=== PATIENT | male | born 1950 | race Caucasian/White ===

== ENCOUNTER → 2017-01-16 | Outpatient (CLI) | payer BC ==
[~2017-01-16] MED LIST: ALPR0.254 PO; ALPR0.5T6 PO; ATOR10TA60 PO; INSU100I13 SQ; LEVO125T5 PO; LEVO25TA4 PO; LISI-338 PO; LISI10TA2 PO; METF500T4 PO; MULT-658 PO; fish oil
--- NOTE | 2017-01-16 16:53 | RAD ---
Left lower extremity venous ultrasound, 01/16/2017 : History: Left leg swelling Duplex evaluation including grayscale, color flow and spectral Doppler analysis was performed. The femoral and popliteal veins show no filling defects to suggest DVT. The visualized calf veins are unremarkable. IMPRESSION: There is no sonographic evidence of deep vein thrombosis in the left lower extremity
== END | disposition home or self-care (01) ==
LOC: RAD 16:04
PROVIDERS: ATTEND Nurse Practitioner Family
DX: M79.89 Other specified soft tissue disorders (principal)
CPT/HCPCS: 93971

== ENCOUNTER → 2017-03-30 | Outpatient (CLI) | payer BC ==
--- NOTE | 2017-03-30 15:44 | RAD ---
EXAM: Chest 2 views. HISTORY: Cough. COMPARISON: None. FINDINGS: Frontal and lateral views of the chest are obtained. There is a mild airspace opacity in the left base. There is minimal atelectasis in the right base. There is no pneumothorax or pleural effusion. The heart is not enlarged. IMPRESSION: 1. Mild left greater than right basilar opacities may represent only atelectasis. Correlate for evidence of infection to exclude mild infiltrates.
== END | disposition home or self-care (01) ==
LOC: DXRADRC 15:33
PROVIDERS: ATTEND Nurse Practitioner Family
DX: R05 Cough (principal)
CPT/HCPCS: 71020

== ENCOUNTER → 2017-04-17 | Outpatient (CLI) | payer BC ==
--- NOTE | 2017-04-17 15:21 | RAD ---
Indication history of pneumonia. Frontal and lateral views of the chest were obtained. Comparison is made to an examination 03/30/2017. The heart and pulmonary vessels appear within normal limits. Somewhat tortuous thoracic aorta is noted. An acute parenchymal infiltrate is not seen on today's exam. Significant pleural fluid is not present and there is no pneumothorax. IMPRESSION: No acute finding
== END | disposition home or self-care (01) ==
LOC: DXRADRC 14:49
PROVIDERS: ATTEND Nurse Practitioner Family
DX: J18.9 Pneumonia, unspecified organism (principal); Q25.46 Tortuous aortic arch
CPT/HCPCS: 71020

== ENCOUNTER → 2018-09-03 | Outpatient (CLI) | payer MEDICARE, OTHER ==
[~2018-09-03] MED LIST changes: +METF500T16 PO; -METF500T4 PO
--- NOTE | 2018-09-03 09:10 | RAD ---
CHEST PA LATERAL Clinical indications: COUGH X 2 WEEKS COMPARISON: April 17, 2017. March 30, 2017. Findings: No acute lung infiltrate or pleural effusion or pulmonary edema or lung mass or pneumothorax is seen. The heart size, pulmonary vasculature, mediastinum and both ana are unremarkable. The osseous structures appear intact. Impression: No acute radiographic abnormality is seen. Electronically signed by: Duran Avila MD (09/03/2018 9:08 AM) [facility]
== END | disposition home or self-care (01) ==
LOC: PMG 07:49
PROVIDERS: ATTEND Physician Assistant Medical
DX: R05 Cough (principal)
CPT/HCPCS: 71046

== ENCOUNTER 2018-12-24 22:01 | Emergency (ER) | payer MEDICARE ==
[~2018-12-24] VITALS: Ht 177.8 cm; Wt 99.8 kg
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
[2018-12-24] MEDS ORDERED: CONTRAST GIVEN MC PRN (22:45)
[2018-12-24 22:50] LABS: BASO # 0.1 x10^3/uL (0.0-0.2); BASO % 1 % (0-3); EOS # 0.4 x10^3/uL (0.0-0.7); EOS % 4 % (0-3); HEMOGLOBIN 14.1 g/dL (13.0-17.5); LYMPH # 1.6 x10^3/uL (1.0-4.8); LYMPH % 17 % (24-48); MEAN CORPUSCULAR HEMOGLOBIN 29 pg (25-35); MEAN CORPUSCULAR HGB CONC 34 g/dL (31-37); MEAN CORPUSCULAR VOLUME 85 fL (79-100); MONO # 0.6 x10^3/uL (0.0-1.1); MONO % 6 % (0-9); NEUT # 6.8 x10^3uL (1.8-7.7); NEUT % 72 % (31-73); PLATELET COUNT 301 x10^3/uL (140-400); RED BLOOD COUNT 4.95 x10^6/uL (4.30-5.70); RED CELL DISTRIBUTION WIDTH 13.7 % (11.5-14.5); WHITE BLOOD COUNT 9.4 x10^3/uL (4.0-11.0)
[2018-12-24] MEDS ORDERED: IOHEXOL 300 MG/ML 75 ML VIAL. IV ONE (23:00)
[2018-12-24] MEDS ORDERED: IV RINGERS SOLUTION,LACTATED 1,000 ML IV ONE (23:00)
[2018-12-24] MEDS ORDERED: IOHEXOL 240 MG/ML 50ML VIAL. PO ONE (23:00)
[2018-12-24 23:15] LABS: ALBUMIN 3.4 g/dL (3.4-5.0); CALCIUM 9.4 mg/dL (8.5-10.1); CREATININE 0.9 mg/dL (0.7-1.3); DIRECT BILIRUBIN 0.1 mg/dL (0.0-0.2); GFR 84.4; MAGNESIUM 1.7 mg/dL (1.8-2.4); POTASSIUM 3.9 mmol/L (3.5-5.1); TOTAL BILIRUBIN 0.4 mg/dL (0.2-1.0); TOTAL PROTEIN 7.3 g/dL (6.4-8.2)
[2018-12-24] MEDS ORDERED: METF10007 PO (23:27)
[2018-12-24] MEDS ORDERED: INSU100I32 SQ (23:27)
[2018-12-24] MEDS ORDERED: LEVO175T5 PO (23:27)
[2018-12-24] MEDS ORDERED: LISI-334 PO (23:27)
[2018-12-24] MEDS ORDERED: ATOR40TA59 PO (23:27)
[2018-12-24] MEDS ORDERED: HYDR-2145 PO (23:27)
--- NOTE | 2018-12-24 23:35 | RAD ---
AP chest. HISTORY: Dyspnea AP view was taken of the chest. There is a left lung nodule unchanged from old studies. Heart is upper normal in size. The aorta is tortuous. There is a focal infiltrate or possible nodule on the right, follow-up film would be recommended. There is no effusion. There is not evidence of heart failure. IMPRESSION: 1. Left lung nodule unchanged from old studies. 2. Possible small infiltrate or nodule right lung, follow-up recommended. 3. No other infiltrates. Electronically signed by: Jabari Russell MD (12/24/2018 11:32 PM) [facility]
[2018-12-25] MEDS ORDERED: MAGNESIUM SULFATE 2GM 50 ML IV ONE (00:30)
[2018-12-25 00:32] LABS: BARBITURATES NEG (NEG); BENZODIAZEPINES NEG (NEG); BILIRUBIN,URINE NEG (NEG); CANNABINOIDS POS (NEG); CLARITY,URINE CLEAR; COCAINE NEG (NEG); COLOR,URINE YELLOW; GLUCOSE,URINE >=1000 mg/dL (NEG); METHADONE NEG (NEG); OPIATES NEG (NEG); PHENCYCLIDINE NEG (NEG)
[2018-12-25 00:33] LABS: BACTERIA,URINE 0 /HPF (0-FEW); NITRITE,URINE NEG (NEG); RBC,URINE >40 /HPF (0-2); SQUAMOUS EPITHELIAL CELL,UR OCC /LPF; UROBILINOGEN,URINE 0.2 mg/dL (0.2 mg/dL); WBC,URINE OCC /HPF (0-4)
--- NOTE | 2018-12-25 00:33 | RAD ---
CT abdomen and pelvis with contrast. HISTORY: Right groin mass. Testicular pain, history of throat cancer in 2014 CT scan the abdomen and pelvis was done using 75 mL Omnipaque 300. There is a focal infiltrate in the medial right lower lobe, pneumonia is possible. Follow-up would be recommended to exclude an infiltrative mass. There is linear scarring or atelectasis in the left lung base. A liver lesion is not identified. There are gallstones in the gallbladder. Spleen and adrenal glands are normal. There is an accessory spleen. Pancreas is unremarkable. There is no mass or hydronephrosis in the kidneys. There is moderate stool in the colon. The cecum is in a large inguinal hernia extending to the scrotum on the right. Appendix is not abnormal. There is no bowel obstruction. Small bowel pattern is normal. Bladder is distended. There is a bladder diverticulum on the left side of the bladder. IMPRESSION: 1. Large right inguinal hernia containing the cecum. 2. Bladder diverticulum on the left with distended bladder. 3. Mild dilatation the renal collecting systems probably related to the distended bladder. 4. No bowel obstruction. 5. Cholelithiasis. 6. Infiltrate versus infiltrative mass in the medial right lower lobe follow-up CT recommended. Electronically signed by: Jabari Russell MD (12/25/2018 12:30 AM) [facility]
[2018-12-25 00:38] LABS: AMPHETAMINE/METHAMPHETAMINE NEG (NEG)
[2018-12-25 01:30] VITALS: BP 149/94
[2018-12-25] MEDS ORDERED: MORPHINE SULFATE 10 MG/ML SYRINGE. SQ ONE (01:30)
[2018-12-26 03:07] LABS: HEMOGLOBIN A1C 11.1 % (4.8-5.6)
== END 2018-12-25 01:41 | disposition short-term general hospital (02) ==
LOC: ER 22:01
DX: K40.90 Unilateral inguinal hernia, without obstruction or gangrene, not specified as recurrent (principal); E83.42 Hypomagnesemia; E87.1 Hypo-osmolality and hyponatremia; E11.9 Type 2 diabetes mellitus without complications; I10 Essential (primary) hypertension; N32.89 Other specified disorders of bladder; N13.30 Unspecified hydronephrosis; K80.20 Calculus of gallbladder without cholecystitis without obstruction; Z79.899 Other long term (current) drug therapy
CPT/HCPCS: 36415; 71045; 74177; 80048; 80076; 80307; 81001; 82150; 83036; 83690; 83735; 83880; 84443; 85025; 85610; 85730; 93005; 96365; 96372; 99285; J2270; J3475; J7120; Q9966; Q9967

== ENCOUNTER 2019-09-14 21:17 | Emergency (ER) | payer MEDICARE ==
[~2019-09-14] VITALS: Ht 177.8 cm; Wt 99.0 kg
[~2019-09-14 21:17] MED LIST changes: +ATOR40TA59 PO; +HYDR-2145 PO; +INSU100I32 SQ; +LEVO175T5 PO; +LISI-334 PO; +METF10007 PO
[2019-09-14] MEDS ORDERED: IV NORMAL SALINE 1,000ML 1,000 ML IV ONE ×2 (22:00→23:30)
[2019-09-14 22:29] LABS: BASO # 0.1 x10^3/uL (0.0-0.2); BASO % 1 % (0-3); EOS % 0 % (0-3); HEMATOCRIT 45.1 % (39.0-53.0); HEMOGLOBIN 14.8 g/dL (13.0-17.5); LYMPH # 0.3 x10^3/uL (1.0-4.8); LYMPH % 2 % (24-48); MEAN CORPUSCULAR HEMOGLOBIN 28 pg (25-35); MEAN CORPUSCULAR HGB CONC 33 g/dL (31-37); MEAN CORPUSCULAR VOLUME 84 fL (79-100); MONO # 0.4 x10^3/uL (0.0-1.1); MONO % 3 % (0-9); NEUT % 95 % (31-73); PLATELET COUNT 319 x10^3/uL (140-400); RED BLOOD COUNT 5.35 x10^6/uL (4.30-5.70); RED CELL DISTRIBUTION WIDTH 13.8 % (11.5-14.5); WHITE BLOOD COUNT 14.8 x10^3/uL (4.0-11.0)
--- NOTE | 2019-09-14 22:29 | PHYS DOC ---
Past History Past Medical History: Cancer, Diabetes, Hypertension, Hypothyroid Past Surgical History: Appendectomy, Other Additional Past Surgical Histo: LEFT FOOT, HERNIA Alcohol Use: Sober Drug Use: Marijuana Adult General Chief Complaint Chief Complaint: NAUSEA/VOMITING/DIARRHEA HPI HPI Patient is a 69 year old male who presents with nausea, vomiting and diarrhea. Symptoms started with 1 day of constipation the day after eating precooked salmon from [employer] that was 4 days old at the time. He ate the salmon again last night for dinner. Patient awoke this morning to vomiting and diarrhea. He has since vomited 15 times and also had diarrhea 15 times today. Patient has not been able to drink or eat today. Patient denies cough or sick contacts. Nobody else ate the salmon with him. Review of Systems Review of Systems Constitutional: Denies fever or chills Eyes: Denies redness or eye pain HENT: Denies nasal congestion or sore throat Respiratory: Denies cough or shortness of breath Cardiovascular: Denies chest pain or palpitations GI: No tenderness to palpation. Has had constipation, diarrhea and vomiting all within last 2 days. : Denies dysuria or hematuria Musculoskeletal: Denies back pain or joint pain Integument: Denies rash or skin lesions Neurologic: Denies headache, focal weakness or sensory changes Complete systems were reviewed and found to be within normal limits, except as documented in this note. Current Medications Current Medications Current Medications Medications (Trade) Dose Ordered Sig/Pito Start Time Stop Time Status Last Admin Dose Admin Famotidine (Pepcid Vial) 20 mg 1X ONCE 09/14/19 22:00 09/14/19 22:01 UNV Ketorolac Tromethamine (Toradol 30mg Vial) 15 mg 1X ONCE 09/14/19 22:00 09/14/19 22:01 UNV Ondansetron HCl (Zofran) 4 mg 1X ONCE 09/14/19 22:00 09/14/19 22:01 UNV Sodium Chloride 1,000 ml @ 1,000 mls/hr 1X ONCE 09/14/19 22:00 09/14/19 22:59 UNV Allergies Allergies Allergies Coded Allergies Type Severity Reaction Last Updated Verified No Known Drug Allergies 12/24/18 No Physical Exam Physical Exam Constitutional: Well developed, dehydrated, mildly distressed, non-toxic appearance HENT: Normocephalic, atraumatic Eyes: PERRL, EOMI, conjunctiva normal, no discharge Neck: Normal range of motion, no tenderness, supple Cardiovascular: Heart rate normal, regular rhythm Lungs & Thorax: Bilateral breath sounds clear to auscultation, no wheezing Abdomen: Soft, no tenderness on exam. Bowel sounds present in 4 quadrants. Skin: Warm, dry, no erythema, no rash Back: No tenderness, no CVA tenderness Extremities: No tenderness, ROM intact, no edema Neurologic: Alert and oriented X 3, normal motor function, normal sensory function, no focal deficits noted Psychologic: Affect normal, judgment normal Current Patient Data Vital Signs Vital Signs Date Time Temp Pulse Resp B/P (MAP) Pulse Ox O2 Delivery O2 Flow Rate FiO2 09/14/19 21:20 97.4 101 20 105/45 (65) 95 Room Air EKG EKG [] Radiology/Procedures Radiology/Procedures PROCEDURE: CT ABDOMEN PELVIS WO CONTRAST CT abdomen pelvis without contrast. HISTORY: Hematuria, nausea and vomiting CT scan the abdomen pelvis was done without contrast. Comparison is made with a study from December 2018. There is mild atelectasis in the lung bases although minimal infiltrates are possible. There is no effusion. There is a small hiatus hernia with fluid in the esophagus from reflux. There are gallstones in the gallbladder. A liver lesion is not identified. There is an accessory spleen. Spleen and adrenal glands are otherwise unremarkable. A pancreatic lesion is not identified. There is no mass or hydronephrosis or calculus in the kidneys. A ureteral calculus is not identified. There is no bowel obstruction. Appendix is normal. There is a moderate sized left bladder diverticulum. The bladder is mildly distended. There is fluid in the small bowel and colon which can be seen with gastroenteritis. There is no obstructive pattern. IMPRESSION: 1. Normal appendix. 2. Left bladder diverticulum without change from the old study. 3. No renal or ureteral calculus noted. 4. Cholelithiasis. 5. Fluid in the bowel possible ileus or gastroenteritis, no obstructive pattern. 6. Mild basilar atelectasis or infiltrates. PQRS Compliance Statement: One or more of the following individualized dose reduction techniques were utilized for this examination: 1. Automated exposure control 2. Adjustment of the mA and/or kV according to patient size 3. Use of iterative reconstruction technique Electronically signed by: Jabari Russell MD (09/15/2019 2:13 AM) [id number] Course & Med Decision Making Course & Med Decision Making Pertinent Labs reviewed. (See chart for details) Patient presents today with 2 day history of GI distress, starting with 1 day of constipation and 1 day of persistent diarrhea and vomiting. Patient has not been able to eat or drink for 1 day. Vomiting has become painful. Patient did not exhibit abdominal pain or peritoneal signs. On exam he did not exhibit signs or symptoms concerning for cardiovascular causes for his symptoms. HPI was positive for questionable salmon that was consumed 2 days in a row at the start and middle of the course of his presenting symptoms. Patient does not exhibit fever nor signs of systemic infection. Nausea and pain was addressed with Ketorolac, zofran and pepcid. Dehydration was addressed with IV fluid hydration. Labs were ordered which showed hyperglycemia and negative acetones. Patient received 2 L of fluid rehydration and was then able to produce urine. Dragon Disclaimer Dragon Disclaimer This electronic medical record was generated, in whole or in part, using a voice recognition dictation system. Departure Departure: Impression: Primary Impression: Nausea vomiting and diarrhea Additional Impressions: Hematuria Acute renal insufficiency Hyperglycemia Disposition: 01 HOME, SELF-CARE Condition: STABLE Referrals: DEON ECKERT MD (PCP) Patient Instructions: Clear Liquid Diet, Qnid-by-Gvlc, Dehydration, Adult, Qvtf-[id number], Diarrhea, Gxzp-hc-[id number], Diet for Diarrhea, Adult, Hematuria, Adult, Hyperglycemia, Fmre-[id number], Nausea and Vomiting, [id number]-[id number] Additional Instructions: Please follow closely with your urologist for further evaluation and treatment. Scripts Hyoscyamine Sulfate (LEVSIN-SL) 0.125 Mg Tab.subl 0.125 MG SL Q4-6HRS PRN for PAIN, #14 TAB Prov: PIEDAD PISANO DO 09/15/19 Famotidine (PEPCID) 20 Mg Tablet 1 TAB PO BID for Gastritis, #14 TAB Prov: PIEDAD PISANO DO 09/15/19 Ondansetron (ONDANSETRON ODT) 4 Mg Tab.rapdis 1 TAB PO PRN Q6-8HRS PRN for NAUSEA, #16 TAB Prov: PIEDAD PISANO DO 09/15/19 Problem Qualifiers Additional Impressions: Hematuria Hematuria type: unspecified type Qualified Codes: R31.9 - Hematuria, unspecified PIEDAD PISANO DO Sep 14, 2019 22:29
[2019-09-14] MEDS ORDERED: FAMOTIDINE 20 MG/2 ML VIAL IVP ONE (22:30)
[2019-09-14] MEDS ORDERED: ONDANSETRON PF 4 MG/2 ML VIAL. IVP ONE (22:30)
[2019-09-14] MEDS ORDERED: KETOROLAC 30 MG/ML VIAL. IVP ONE (22:30)
[2019-09-14 22:36] LABS: CALCIUM 9.3 mg/dL (8.5-10.1); CREATININE 2.2 mg/dL (0.7-1.3); POTASSIUM 4.3 mmol/L (3.5-5.1)
[2019-09-14 22:44] LABS: ALBUMIN 3.8 g/dL (3.4-5.0); TOTAL BILIRUBIN 0.6 mg/dL (0.2-1.0); TOTAL PROTEIN 7.8 g/dL (6.4-8.2)
[2019-09-14 22:48] LABS: % BANDS 2 % (0-9); % LYMPHS 4 % (24-48); % MONOS 1 % (0-10); % SEGS 93 % (35-66)
[2019-09-14 22:49] LABS: PLT ESTIMATE ADEQUATE (ADEQUATE)
[2019-09-14] MEDS ORDERED: INSULIN REGULAR 100 UNIT/ML 3ML VIAL. SQ ONE (23:30)
[2019-09-15 01:11] LABS: BILIRUBIN,URINE NEG (NEG); CLARITY,URINE CLEAR; COLOR,URINE YELLOW; GLUCOSE,URINE >=1000 mg/dL (NEG)
[2019-09-15 01:12] LABS: BACTERIA,URINE 0 /HPF (0-FEW); NITRITE,URINE NEG (NEG); RBC,URINE >40 /HPF (0-2); SQUAMOUS EPITHELIAL CELL,UR OCC /LPF; UROBILINOGEN,URINE 0.2 mg/dL (0.2 mg/dL)
[2019-09-15] MEDS ORDERED: FAMO-63 PO (02:11)
[2019-09-15] MEDS ORDERED: ONDA4TAB12 PO (02:11)
[2019-09-15] MEDS ORDERED: HYOS0.1265 SL (02:11)
--- NOTE | 2019-09-15 02:16 | RAD ---
CT abdomen pelvis without contrast. HISTORY: Hematuria, nausea and vomiting CT scan the abdomen pelvis was done without contrast. Comparison is made with a study from December 2018. There is mild atelectasis in the lung bases although minimal infiltrates are possible. There is no effusion. There is a small hiatus hernia with fluid in the esophagus from reflux. There are gallstones in the gallbladder. A liver lesion is not identified. There is an accessory spleen. Spleen and adrenal glands are otherwise unremarkable. A pancreatic lesion is not identified. There is no mass or hydronephrosis or calculus in the kidneys. A ureteral calculus is not identified. There is no bowel obstruction. Appendix is normal. There is a moderate sized left bladder diverticulum. The bladder is mildly distended. There is fluid in the small bowel and colon which can be seen with gastroenteritis. There is no obstructive pattern. IMPRESSION: 1. Normal appendix. 2. Left bladder diverticulum without change from the old study. 3. No renal or ureteral calculus noted. 4. Cholelithiasis. 5. Fluid in the bowel possible ileus or gastroenteritis, no obstructive pattern. 6. Mild basilar atelectasis or infiltrates. PQRS Compliance Statement: One or more of the following individualized dose reduction techniques were utilized for this examination: 1. Automated exposure control 2. Adjustment of the mA and/or kV according to patient size 3. Use of iterative reconstruction technique Electronically signed by: Jabari Russell MD (09/15/2019 2:13 AM) [id number]
[2019-09-15 02:21] VITALS: BP 105/68
== END 2019-09-15 02:27 | disposition home or self-care (01) ==
LOC: ER 21:17
DX: N28.9 Disorder of kidney and ureter, unspecified (principal); R11.2 Nausea with vomiting, unspecified; R19.7 Diarrhea, unspecified; R31.9 Hematuria, unspecified; E11.65 Type 2 diabetes mellitus with hyperglycemia; I10 Essential (primary) hypertension; E03.9 Hypothyroidism, unspecified
CPT/HCPCS: 36415; 74176; 80053; 81001; 82010; 83690; 85007; 85025; 96361; 96372; 96374; 96375; 99284; J1815; J1885; J2405; J3490; J7030

== ENCOUNTER 2021-07-23 11:37 | Inpatient (IN) | payer MEDICARE, OTHER ==
[~2021-07-23] VITALS: Ht 180.3 cm; Wt 102.4 kg
[~2021-07-23 11:37] MED LIST changes: +FAMO-63 PO; +HYOS0.1265 SL; -LISI-334 PO; -LISI-338 PO; +LISI10TA16 PO; -LISI10TA2 PO; +LISI20TA18 PO; +LISI5TAB15 PO; +ONDA4TAB12 PO
[2021-07-23] MEDS ORDERED: IV NORMAL SALINE 1,000ML 1,000 ML IV ONE (12:45)
[2021-07-23] MEDS ORDERED: ONDANSETRON PF 4 MG/2 ML VIAL. IVP ONE (12:45)
[2021-07-23] MEDS ORDERED: IOHEXOL 300 MG/ML 75 ML VIAL. IV ONE (13:00)
[2021-07-23] MEDS ORDERED: CONTRAST GIVEN. MC PRN (13:00)
[2021-07-23 13:22] LABS: BASO % 0 % (0-3); EOS # 0.1 x10^3/uL (0.0-0.7); EOS % 1 % (0-3); HEMATOCRIT 35.3 % (39.0-53.0); HEMOGLOBIN 11.5 g/dL (13.0-17.5); LYMPH # 0.6 x10^3/uL (1.0-4.8); LYMPH % 8 % (24-48); MEAN CORPUSCULAR HEMOGLOBIN 26 pg (25-35); MEAN CORPUSCULAR HGB CONC 32 g/dL (31-37); MEAN CORPUSCULAR VOLUME 79 fL (79-100); MONO # 0.5 x10^3/uL (0.0-1.1); MONO % 7 % (0-9); NEUT # 6.5 x10^3uL (1.8-7.7); NEUT % 84 % (31-73); PLATELET COUNT 351 x10^3/uL (140-400); RED BLOOD COUNT 4.47 x10^6/uL (4.30-5.70); RED CELL DISTRIBUTION WIDTH 15.3 % (11.5-14.5); WHITE BLOOD COUNT 7.7 x10^3/uL (4.0-11.0)
[2021-07-23 13:37] LABS: INFLUENZA A PATIENT NEGATIVE (NEGATIVE); INFLUENZA B PATIENT NEGATIVE (NEGATIVE)
[2021-07-23 13:37] LABS: CALCIUM 8.5 mg/dL (8.5-10.1); GFR 74.1; POTASSIUM 3.5 mmol/L (3.5-5.1)
[2021-07-23 13:43] LABS: ALBUMIN 2.5 g/dL (3.4-5.0); ALBUMIN/GLOBULIN RATIO 0.5 (1.0-1.7); TOTAL BILIRUBIN 0.8 mg/dL (0.2-1.0); TOTAL PROTEIN 7.2 g/dL (6.4-8.2)
--- NOTE | 2021-07-23 13:55 | PHYS DOC ---
Past History Past Medical History: Cancer, Diabetes, Hypertension, Hypothyroid Additional Past Medical Histor: BPH, insomnia (NELLA RUANO APRN) Past Surgical History: Cancer Surgery, Tonsillectomy, Other Additional Past Surgical Histo: hernia repair, L foot and knee surgery (NELLA RUANO APRN) Smoking: Quit Greater Than 1 Year Alcohol Use: Sober Drug Use: Marijuana (NELLA RUANO APRN) General Adult EDM: Chief Complaint: NAUSEA/VOMITING/DIARRHEA HPI: HPI: Patient is a 71-year-old male that presents today with nausea vomiting and diarrhea for the last 4 days. Patient states that 4 days ago his symptoms started mostly with diarrhea which she had multiple stools throughout the day he said in the last 24 hours he has mostly had nausea he says he has not vomited today but does feel the need to at all times. He denies chest pain or shortness of air at this time. Patient states he had similar symptoms 2 years ago and was sent home he states and has felt fine since then. Patient does state that he has had his [employer] vaccines as well. (NELLA RUANO APRN) Review of Systems: Review of Systems: Constitutional: Denies fever or chills Eyes: Denies change in visual acuity HENT: Denies nasal congestion or sore throat Respiratory: Denies cough or shortness of breath Cardiovascular: Denies chest pain or edema GI: Nausea, diarrhea, vomiting : Denies dysuria Musculoskeletal: Denies back pain or joint pain Integument: Denies rash Neurologic: Denies headache, focal weakness or sensory changes Endocrine: Denies polyuria or polydipsia Lymphatic: Denies swollen glands Psychiatric: Denies depression or anxiety (NELLA RUANO JUVENILE OFFICER) Current Medications: Current Meds: Current Medications Medications (Trade) Dose Ordered Sig/Pito Start Time Stop Time Status Last Admin Dose Admin Info (Do NOT chart on this entry -- for MONITORING) 1 each PRN DAILY PRN 07/23/21 13:00 07/25/21 12:59 Iohexol (Omnipaque 300 Mg/ml) 75 ml 1X ONCE 07/23/21 13:00 07/23/21 13:01 DC Ondansetron HCl (Zofran) 4 mg 1X ONCE 07/23/21 12:45 07/23/21 12:58 DC 07/23/21 13:08 4 MG Sodium Chloride 1,000 ml @ 1,000 mls/hr 1X ONCE 07/23/21 12:45 07/23/21 13:44 DC 07/23/21 13:07 1,000 MLS/HR (NELLA RUANO APRN) Allergies: Allergies: Allergies Coded Allergies Type Severity Reaction Last Updated Verified No Known Drug Allergies 12/24/18 No (NELLA RUANO APRN) Physical Exam: PE: Constitutional: Well developed, well nourished, no acute distress, non-toxic appearance. [] HENT: Normocephalic, atraumatic, bilateral external ears normal, oropharynx moist, no oral exudates, nose normal. [] Eyes: PERRLA, EOMI, conjunctiva normal, no discharge. [] Neck: Normal range of motion, no tenderness, supple, no stridor. [] Cardiovascular:Heart rate regular rhythm, no murmur [] Lungs & Thorax: Bilateral breath sounds clear to auscultation [] Abdomen: Bowel sounds are hyperactive, no pain or guarding with palpation. No pulsatile masses noted as well. Skin: Warm, dry, no erythema, no rash. [] Back: No tenderness, no CVA tenderness. [] Extremities: No tenderness, no cyanosis, no clubbing, ROM intact, no edema. Peripheral pulses 2+ Neurologic: Alert and oriented X 3, normal motor function, normal sensory function, no focal deficits noted. [] Psychologic: Affect normal, judgement normal, mood normal. [] (NELLA RUANO APRN) Current Patient Data: Labs: Laboratory Tests Test 07/23/21 12:18 07/23/21 12:40 White Blood Count 7.7 x10^3/uL Red Blood Count 4.47 x10^6/uL Hemoglobin 11.5 g/dL Hematocrit 35.3 % Mean Corpuscular Volume 79 fL Mean Corpuscular Hemoglobin 26 pg Mean Corpuscular Hemoglobin Concent 32 g/dL Red Cell Distribution Width 15.3 % Platelet Count 351 x10^3/uL Neutrophils (%) (Auto) 84 % Lymphocytes (%) (Auto) 8 % Monocytes (%) (Auto) 7 % Eosinophils (%) (Auto) 1 % Basophils (%) (Auto) 0 % Neutrophils # (Auto) 6.5 x10^3uL Lymphocytes # (Auto) 0.6 x10^3/uL Monocytes # (Auto) 0.5 x10^3/uL Eosinophils # (Auto) 0.1 x10^3/uL Basophils # (Auto) 0.0 x10^3/uL Sodium Level 131 mmol/L Potassium Level 3.5 mmol/L Chloride Level 93 mmol/L Carbon Dioxide Level 26 mmol/L Anion Gap 12 Blood Urea Nitrogen 12 mg/dL Creatinine 1.0 mg/dL Estimated GFR (Cockcroft-Gault) 74.1 BUN/Creatinine Ratio 12 Glucose Level 197 mg/dL Calcium Level 8.5 mg/dL Total Bilirubin 0.8 mg/dL Aspartate Amino Transf (AST/SGOT) 38 U/L Alanine Aminotransferase (ALT/SGPT) 51 U/L Alkaline Phosphatase 117 U/L Total Protein 7.2 g/dL Albumin 2.5 g/dL Albumin/Globulin Ratio 0.5 Lipase 90 U/L Influenza Type A (Rapid) Negative Influenza Type B (Rapid) Negative SARS-CoV-2 Antigen (Rapid) Positive Current Medications Medications (Trade) Dose Ordered Sig/Pito Route PRN Reason Start Time Stop Time Status Last Admin Dose Admin Sodium Chloride 1,000 ml @ 1,000 mls/hr 1X ONCE IV 07/23/21 12:45 07/23/21 13:44 DC 07/23/21 13:07 Ondansetron HCl (Zofran) 4 mg 1X ONCE IVP 07/23/21 12:45 07/23/21 12:58 DC 07/23/21 13:08 Iohexol (Omnipaque 300 Mg/ml) 75 ml 1X ONCE IV 07/23/21 13:00 07/23/21 13:01 DC Info (Do NOT chart on this entry -- for MONITORING) 1 each PRN DAILY PRN MC SEE COMMENTS 07/23/21 13:00 07/25/21 12:59 Dexamethasone Sodium Phosphate (Decadron) 10 mg 1X ONCE PO 07/23/21 14:00 07/23/21 14:02 DC Ceftriaxone Sodium 1 gm/ Sodium Chloride 50 ml @ 100 mls/hr 1X ONCE IV 07/23/21 14:15 07/23/21 14:44 DC Azithromycin 500 mg/Sodium Chloride 250 ml @ 250 mls/hr 1X ONCE IV 07/23/21 14:15 07/23/21 15:14 Laboratory Tests Test 07/23/21 12:18 White Blood Count 7.7 x10^3/uL (4.0-11.0) Red Blood Count 4.47 x10^6/uL (4.30-5.70) Hemoglobin 11.5 g/dL (13.0-17.5) L Hematocrit 35.3 % (39.0-53.0) L Mean Corpuscular Volume 79 fL (79-100) Mean Corpuscular Hemoglobin 26 pg (25-35) Mean Corpuscular Hemoglobin Concent 32 g/dL (31-37) Red Cell Distribution Width 15.3 % (11.5-14.5) H Platelet Count 351 x10^3/uL (140-400) Neutrophils (%) (Auto) 84 % (31-73) H Lymphocytes (%) (Auto) 8 % (24-48) L Monocytes (%) (Auto) 7 % (0-9) Eosinophils (%) (Auto) 1 % (0-3) Basophils (%) (Auto) 0 % (0-3) Neutrophils # (Auto) 6.5 x10^3uL (1.8-7.7) Lymphocytes # (Auto) 0.6 x10^3/uL (1.0-4.8) L Monocytes # (Auto) 0.5 x10^3/uL (0.0-1.1) Eosinophils # (Auto) 0.1 x10^3/uL (0.0-0.7) Basophils # (Auto) 0.0 x10^3/uL (0.0-0.2) Sodium Level 131 mmol/L (136-145) L Potassium Level 3.5 mmol/L (3.5-5.1) Chloride Level 93 mmol/L (98-107) L Carbon Dioxide Level 26 mmol/L (21-32) Anion Gap 12 (6-14) Blood Urea Nitrogen 12 mg/dL (8-26) Creatinine 1.0 mg/dL (0.7-1.3) Estimated GFR (Cockcroft-Gault) 74.1 BUN/Creatinine Ratio 12 (6-20) Glucose Level 197 mg/dL (70-99) H Calcium Level 8.5 mg/dL (8.5-10.1) Total Bilirubin Pending Aspartate Amino Transferase (AST) Pending Alanine Aminotransferase (ALT) Pending Alkaline Phosphatase Pending Total Protein Pending Albumin Pending Albumin/Globulin Ratio Pending Lipase Pending Vital Signs: Vital Signs Date Time Temp Pulse Resp B/P (MAP) Pulse Ox O2 Delivery O2 Flow Rate FiO2 07/23/21 19:00 98.2 89 18 157/89 (111) 95 Nasal Cannula 2.0 07/23/21 17:50 71 20 123/66 (85) 91 2.0 07/23/21 16:50 78 18 120/71 (87) 94 2.0 07/23/21 15:50 79 18 136/79 (98) 95 2.0 07/23/21 14:50 77 20 130/70 (90) 95 2.0 07/23/21 13:50 78 18 144/72 (96) 89 07/23/21 12:50 70 18 138/75 (96) 92 07/23/21 12:23 98.4 79 22 143/85 (104) 92 Room Air Vital Signs Date Time Temp Pulse Resp B/P (MAP) Pulse Ox O2 Delivery O2 Flow Rate FiO2 07/23/21 12:23 98.4 79 22 143/85 (104) 92 Room Air Vital Signs Date Time Temp Pulse Resp B/P (MAP) Pulse Ox O2 Delivery O2 Flow Rate FiO2 07/23/21 12:23 98.4 79 22 143/85 (104) 92 Room Air (NELLA RUANO APRN) EKG: EKG: [] (NELLA RUANO JUVENILE OFFICER) Radiology/Procedures: Radiology/Procedures: REASON: chest/abd pain PROCEDURE: CHEST AP ONLY XR CHEST 1V History: Reason: chest/abd pain / Spl. Instructions: / History: Comparison: December 24, 2018. Findings: Moderate multifocal pulmonary opacities bilaterally. No pleural effusion. No pneumothorax. Normal heart size. Impression: 1. Moderate multifocal pulmonary opacities, concerning for pneumonia including viral pneumonia. Electronically signed by: Luis Enrique Powell DO (07/23/2021 1:56 PM) [id number] [] (NELLA RUANO APRN) Heart Score: C/O Chest Pain: N/A Risk Factors: Risk Factors: DM, Current or recent (<one month) smoker, HTN, HLP, family history of CAD, obesity. Risk Scores: Score 0 - 3: 2.5% MACE over next 6 weeks - Discharge Home Score 4 - 6: 20.3% MACE over next 6 weeks - Admit for Clinical Observation Score 7 - 10: 72.7% MACE over next 6 weeks - Early Invasive Strategies (NELLA RUANO APRN) Course & Med Decision Making: Course & Med Decision Making Pertinent Labs and Imaging studies reviewed. (See chart for details) 1415 reassessment of patient shows patient's oxygen saturation when he falls asleep to 86% on room air placed on 2 L nasal cannula to maintain sats greater than 92%. Did contact Dr. Weston for admission due to COVID-19 and for the need of oxygen therapy to maintain sats greater than 92%. Patient was given Decadron and IV antibiotics for atypical pneumonia in the right middle lobe. Patient is agreeable to admission. (NELLA RUANO APRN) Course & Med Decision Making I was the Attending physician on the above date of service of this patient. This patient was evaluated, examined, treated, and dispositioned from the emergency department by the mid-level practitioner. I reviewed case with OUTCOME ANALYST and agreed to plan of care and need for admission Electronically signed, Santos Severino DO (SANTOS SEVERINO DO) Manoj Disclaimer: Manoj Disclaimer: This electronic medical record was generated, in whole or in part, using a voice recognition dictation system. (NELLA RUANO APRN) Departure Departure: Impression: Primary Impression: COVID-19 Additional Impressions: Hypoxia Nausea & vomiting Qualified Codes: R11.2 - Nausea with vomiting, unspecified Atypical pneumonia Disposition: ADMITTED INPATIENT Admitting Physician: Karl Weston (NELLA RUANO APRN) Condition: GUARDED Referrals: DEON ECKERT MD (PCP) NELLA RUANO APRN Jul 23, 2021 13:55 SANTOS SEVERINO DO Jul 25, 2021 06:27
--- NOTE | 2021-07-23 13:58 | RAD ---
XR CHEST 1V History: Reason: chest/abd pain / Spl. Instructions: / History: Comparison: December 24, 2018. Findings: Moderate multifocal pulmonary opacities bilaterally. No pleural effusion. No pneumothorax. Normal hea rt size. Impression: 1. Moderate multifocal pulmonary opacities, concerning for pneumonia including viral pneumonia. Electronically signed by: Luis Enrique Powell DO (07/23/2021 1:56 PM) [id number]
[2021-07-23] MEDS ORDERED: DEXAMETHASONE SOD PHOS 10 MG/ML VIAL. PO ONE (14:00)
[2021-07-23] MEDS ORDERED: AZITHROMYCIN 500 MG in IV NORMAL SALINE 250ML 250 ML IV ONE (14:15)
[2021-07-23] MEDS ORDERED: ACETAMINOPHEN 325 MG TABLET PO PRN (15:00)
[2021-07-23] MEDS ORDERED: IV NORMAL SALINE 250ML 250 ML ONE (15:23)
[2021-07-23] MEDS ORDERED: cefTRIAXone SODIUM 1 GM VIAL ONE (15:24)
[2021-07-23] MEDS ORDERED: AZITHROMYCIN 500 MG VIAL. IV ONE (15:24)
[2021-07-23] MEDS ORDERED: IV NORMAL SALINE 50ML 50 ML ONE (15:24)
[2021-07-23 17:06] LABS: BACTERIA,URINE 0 /HPF (0-FEW); BILIRUBIN,URINE NEG (NEG); CLARITY,URINE CLEAR; COLOR,URINE YELLOW; GLUCOSE,URINE 250 mg/dL (NEG); NITRITE,URINE NEG (NEG); RBC,URINE 0 /HPF (0-2); SQUAMOUS EPITHELIAL CELL,UR OCC /LPF; WBC,URINE OCC /HPF (0-4)
[2021-07-23 19:00] VITALS: BP 157/89
[2021-07-23] MEDS ORDERED: OMEG10005 PO (19:54)
[2021-07-23] MEDS ORDERED: ALPR0.5T6 PO (19:54)
[2021-07-23] MEDS ORDERED: HYDR12.58 PO (19:54)
[2021-07-23] MEDS ORDERED: INSU100I32 SQ (19:54)
[2021-07-23] MEDS ORDERED: METF500T16 PO (19:54)
[2021-07-23] MEDS ORDERED: [UNRECOGNIZED DRUG - CODE] PO (19:54)
[2021-07-23] MEDS ORDERED: ZOLP5TAB5 PO (19:54)
[2021-07-23] MEDS ORDERED: TAMS0.4C97 PO (19:54)
[2021-07-23] MEDS ORDERED: ZOLPIDEM 5 MG TABLET. PO PRN (20:00)
[2021-07-23] MEDS ORDERED: ATORVASTATIN CALCIUM 20 MG TABLET PO SCH (21:00)
[2021-07-23] MEDS ORDERED: INSULIN GLARGINE SYRINGE. SQ SCH (21:00)
--- NOTE | 2021-07-23 23:42 | NUR ---
PT ADMITTED TO [facility] ACCOMPANIED BY ER STAFF. PT AMBULATED INDEPENDENTLY FROM [facility] TO BED. VS OBTAINED. PT AOX4. MEDICATION LIST COPIED INTO CHART AND RECONCILED.
[2021-07-24] VITALS: BP 143/56
[2021-07-24 05:00] VITALS: BP 149/96
[2021-07-24] MEDS ORDERED: TAMSULOSIN 0.4 MG CAP.ER.24H. PO SCH (09:00)
[2021-07-24] MEDS ORDERED: hydroCHLOROthiazide 25 MG TABLET. PO SCH (09:00)
[2021-07-24] MEDS ORDERED: OMEGA-3 FATTY ACIDS/FISH OIL 1,000 MG CAPSULE. PO SCH (09:00)
[2021-07-24] MEDS ORDERED: ALPRAZolam 0.5 MG TABLET PO SCH (09:00)
[2021-07-24] MEDS ORDERED: NON FORMULARY ITEM (Hydrochlorothiazide (Hydrochlorothiazide Tablet) 12.5 MG) PO SCH (09:00)
--- NOTE | 2021-07-24 10:23 | HP ---
DATE OF SERVICE: 07/24/2021 ADMIT DATE: 07/23/2021 ATTENDING PHYSICIAN: Dr. Hendrix. CHIEF COMPLAINT: Diarrhea and dehydration last 4 days. HISTORY OF PRESENT ILLNESS: The patient is 71. He has been fully vaccinated against the COVID virus. He has had GI symptoms, nausea, vomiting, diarrhea for 4 days. He is very weak, tired. He also tested positive incidentally for the COVID pneumonia. I do not think he has active pulmonary issues, his saturations were reasonable. He did have a chest x-ray which showed some chronic changes at the base. He was admitted, nevertheless, with a diagnosis of COVID pneumonia as well as GI symptoms with dehydration. PAST MEDICAL HISTORY: Significant for bladder cancer, diabetes, hypothyroidism, benign prostatic hypertrophy, tonsillectomy and foot surgery. ALLERGIES: He has no recorded drug allergies. CURRENT MEDICATIONS: At home include the following: He was on alprazolam, Lipitor, famotidine, hydrochlorothiazide, hydroxyzine, insulin, levothyroxine, metformin, multivitamin, Decadron, Flomax, Zolpidem. SOCIAL HISTORY: He is a nonsmoker, nondrinker. FAMILY HISTORY: Noncontributory. REVIEW OF SYSTEMS: Significant for the GI symptoms. He has been fully vaccinated. All other systems reviewed and turned to be negative. PHYSICAL EXAMINATION: GENERAL: When I saw him, this is a pleasant gentleman in no acute distress. VITAL SIGNS: Initial vital signs showed a blood pressure 145/58. He was afebrile, oxygen saturation 96% on 2 liters. HEENT: Head is without trauma. Pupils are reactive. Sclerae nonicteric. The oropharynx is clear. NECK: Supple. LUNGS: Otherwise clear. CARDIOVASCULAR: Regular heart tones. ABDOMEN: Obese, protuberant. No organomegaly. Bowel sounds are hypoactive. EXTREMITIES: Show no cyanosis. NEUROLOGIC FINDING: Focally intact. Speech is fluent. IMAGING STUDIES: As noted. PERTINENT LABORATORY STUDIES: Hemoglobin 11.5 grams, white count 7700. Electrolytes: Creatinine is 1 mg percent, potassium, electrolytes within normal range. Serology positive for coronavirus rapid. ASSESSMENT: 1. A 71-year-old gentleman with a viral gastroenteritis. 2. Incidental finding coronavirus. 3. Questionable pneumonia. He is not too symptomatic. 4. Mild dehydration. PLAN: 1. Observation status. 2. IV hydration. 3. Empiric antibiotics. 4. Wean down supplemental oxygen. GAGAN DR: Lorne TID: [id number] CC: DEON ECKERT MD
--- NOTE | 2021-07-24 10:38 | DS ---
DATE OF DISCHARGE: 07/24/2021 ATTENDING PHYSICIANS: Dr. Weston and Dr. Hendrix FINAL DISCHARGE DIAGNOSES: 1. Gastroenteritis related to COVID, resolved. 2. Incidental finding of COVID Omicron variance, the patient has been fully vaccinated. 3. Mild dehydration, resolved. 4. Chronic infiltrate on x-ray, asymptomatic. 5. Type 2 diabetes. 6. Essential hypertension. 7. Hypothyroidism, on replacement. HISTORY AND PHYSICAL: The patient is an active 71-year-old gentleman with a 4-day history of nausea, vomiting, diarrhea clinical dehydration, poor appetite. He also had incidental finding of a positive coronavirus swab despite being fully vaccinated. PHYSICAL EXAMINATION: Please see the dictated note. PERTINENT LABORATORY AND X-RAY STUDIES: On the database normal BUN, creatinine, electrolytes. COURSE IN THE HOSPITAL: The patient was admitted. He was given IV hydration. He did well. Diet was advanced. We were able to wean him off supplemental oxygen. He was feeling better and insisted on going home the next day. I felt this was reasonable. I wrote a script for Decadron 4 mg tabs 2 daily for 5 more days then stop. Other home meds are unchanged. He will continue his alprazolam, Lipitor, Pepcid, hyoscyamine, insulin, metformin, Synthroid, omega 3 fish oil, multivitamin, ondansetron p.r.n., Flomax and dopamine doses unchanged. The patient was then discharged from our hospital in stable condition with explicit drug and followup care. KATINA DR: Lorne TID: [id number] CC: DEON ECKERT MD
--- NOTE | 2021-07-24 13:32 | NUR ---
nursing note Pt discharge via ambulation at 1050 accompained by family member pt given written and verbal instructions with verbal statement of understanding recived.
[2021-07-25] MEDS ORDERED: metFORMIN 500 MG TABLET PO SCH (21:00)
== END 2021-07-24 13:35 | disposition home or self-care (01) | DRG 177 ==
LOC: ER 11:37 → ER HOLD 14:50 → 1 SOUTH 18:36
PROVIDERS: ADMIT Internal Medicine; ATTEND Internal Medicine
DX: U07.1 COVID-19 (principal); J12.82 Pneumonia due to coronavirus disease 2019; A08.4 Viral intestinal infection, unspecified; E03.9 Hypothyroidism, unspecified; E11.9 Type 2 diabetes mellitus without complications; E86.0 Dehydration; I10 Essential (primary) hypertension; N40.0 Benign prostatic hyperplasia without lower urinary tract symptoms; R09.02 Hypoxemia; Z85.51 Personal history of malignant neoplasm of bladder; Z87.891 Personal history of nicotine dependence; Z90.49 Acquired absence of other specified parts of digestive tract; F12.90 Cannabis use, unspecified, uncomplicated
CPT/HCPCS: 36415; 71045; 80053; 81001; 83690; 85025; 87428; 96361; 96365; 96375; J0456; J0696; J1100; J1815; J2405; J7050; 99285-25; J7030

== ENCOUNTER 2021-07-29 13:02 | Observation (INO) | payer MEDICARE, OTHER ==
[~2021-07-29] VITALS: Ht 177.8 cm; Wt 102.7 kg
[~2021-07-29 13:02] MED LIST changes: +HYDR12.58 PO; +OMEG10005 PO; +TAMS0.4C97 PO; +ZOLP5TAB5 PO; +[UNRECOGNIZED DRUG - CODE] PO
--- NOTE | 2021-07-29 13:35 | PHYS DOC ---
Past History Past Medical History: Cancer, Diabetes, Hypertension, Hypothyroid Additional Past Medical Histor: BPH, insomnia Past Surgical History: Cancer Surgery, Tonsillectomy, Other Additional Past Surgical Histo: hernia repair, L foot and knee surgery Smoking: Quit Greater Than 1 Year Alcohol Use: Sober Drug Use: Marijuana General Adult EDM: Chief Complaint: VISION PROBLEM HPI: HPI: 71-year-old male presents emergency room with visual change as of breath. The patient was diagnosed with COVID-19 a week ago. He presents today because when he woke up this morning he was feeling more short of breath and fatigued. He also feels like his vision is a little blurry. He denies fever or chills. His vision was normal yesterday when he went to bed. Review of Systems: Review of Systems: Constitutional: Denies fever or chills Eyes: Blurry vision HENT: Denies nasal congestion or sore throat Respiratory: shortness of breath Cardiovascular: Denies chest pain or edema GI: Denies abdominal pain, nausea, vomiting, bloody stools or diarrhea : Denies dysuria Musculoskeletal: Denies back pain or joint pain Integument: Denies rash Neurologic: Denies headache, focal weakness or sensory changes Endocrine: Denies polyuria or polydipsia Lymphatic: Denies swollen glands Psychiatric: Denies depression or anxiety Allergies: Allergies: Allergies Coded Allergies Type Severity Reaction Last Updated Verified No Known Drug Allergies 12/24/18 No Physical Exam: PE: Constitutional: Well developed, well nourished, no acute distress, non-toxic appearance. [] HENT: Normocephalic, atraumatic, bilateral external ears normal, oropharynx dry, no oral exudates, nose normal. [] Eyes: PERRLA, EOMI, conjunctiva normal, no discharge. Limited fundal exam normal. [] Neck: Normal range of motion, no tenderness, supple, no stridor. [] Cardiovascular: Heart rate 81, regular rhythm, no murmur [] Lungs & Thorax: Bilateral breath sounds clear to auscultation [] Abdomen: Bowel sounds normal, soft, no tenderness, no masses, no pulsatile masses. [] Skin: Warm, dry, no erythema, no rash. [] Back: No tenderness, no CVA tenderness. [] Extremities: No tenderness, no cyanosis, no clubbing, ROM intact, no edema. [] Neurologic: Alert and oriented X 3, normal motor function, normal sensory function, no focal deficits noted. [] Psychologic: Affect normal, judgement normal, mood normal. [] EKG: EKG: Sinus rhythm, rate 81, leftward axis, no ST elevation or depression. [] Radiology/Procedures: Radiology/Procedures: [] Impressions: EXAM: CHEST ONE VIEW. HISTORY: Altered mental status. COMPARISON: 07/23/2021. FINDINGS: A frontal view of the chest is obtained. Patchy bilateral infiltrates have improved but not completely resolved. There is no pneumothorax or pleural effusion. The heart is not enlarged. IMPRESSION: 1. Bilateral infiltrates have improved but not completely resolved. Electronically signed by: Kiya Dejesus MD (07/29/2021 1:39 PM) [id number] DICTATED AND SIGNED BY: SAVI DEJESUS MD DATE: 07/29/21 1338 CC: WILL RICARDO DO; DEON ECKERT MD ~MTH0 0 EXAM: CT HEAD WITHOUT CONTRAST. HISTORY: Visual disturbances. TECHNIQUE: Computed tomography of the head was performed without intravenous contrast. One or more of the following individualized dose reduction techniques were utilized for this examination: 1. Automated exposure control. 2. Adjustment of the mA and/or kV according to patient size. 3. Use of iterative reconstruction technique. COMPARISON: 12/05/2014. FINDINGS: There is no intracranial hemorrhage. Hypoattenuation within the periventricular white matter indicates mild to moderate chronic microangiopathic change. Prominence of the lateral ventricles and hemispheric sulci indicates mild atrophy. The visualized paranasal sinuses appear clear. The orbits are unremarkable. The temporal bones are unremarkable. The calvarium reveals no suspicious lesions. There are atherosclerotic calcifications of the internal carotid arteries. IMPRESSION: 1. No acute intracranial findings. 2. Mild atrophy and mild to moderate chronic microangiopathic white matter change. Electronically signed by: Kiya Dejesus MD (07/29/2021 1:42 PM) [id number] DICTATED AND SIGNED BY: SAVI DEJESUS MD DATE: 07/29/21 1339 CC: WILL RICARDO DO; DEON ECKERT MD ~MTH0 0 Heart Score: C/O Chest Pain: N/A Risk Factors: Risk Factors: DM, Current or recent (<one month) smoker, HTN, HLP, family history of CAD, obesity. Risk Scores: Score 0 - 3: 2.5% MACE over next 6 weeks - Discharge Home Score 4 - 6: 20.3% MACE over next 6 weeks - Admit for Clinical Observation Score 7 - 10: 72.7% MACE over next 6 weeks - Early Invasive Strategies Course & Med Decision Making: Course & Med Decision Making Pertinent Labs and Imaging studies reviewed. (See chart for details) The patients labs wer significant for an elevated blood sugar and elevated troponin. During my exam, he did not seem to have focal deficits. He was complaining of blurry vision which is new. I found his strength to be equal in the upper and lower extremities. Face equal. I will admit the patient for elevated troponin and the visual change. This could also be sequela of COVID-19. I spoke with Dr. Hendrix and he has accepted the patient for admission. [] Dragon Disclaimer: Dragon Disclaimer: This electronic medical record was generated, in whole or in part, using a voice recognition dictation system. Departure Departure: Impression: Primary Impression: COVID-19 Additional Impressions: Elevated troponin Visual disturbance Disposition: ADMITTED INPATIENT Admitting Physician: Brain Hendrix Condition: STABLE Referrals: DEON ECKERT MD (PCP) WILL RICARDO DO Jul 29, 2021 13:35
--- NOTE | 2021-07-29 13:41 | RAD ---
EXAM: CHEST ONE VIEW. HISTORY: Altered mental status. COMPARISON: 07/23/2021. FINDINGS: A frontal view of the chest is obtained. Patchy bilateral infiltrates have improved but not completely resolved. There is no pneumothorax or p leural effusion. The heart is not enlarged. IMPRESSION: 1. Bilateral infiltrates have improved but not completely resolved. Electronically signed by: Kiya Dejesus MD (07/29/2021 1:39 PM) [id number]
--- NOTE | 2021-07-29 13:45 | RAD ---
EXAM: CT HEAD WITHOUT CONTRAST. HISTORY: Visual disturbances. TECHNIQUE: Computed tomography of the head was performed without intravenous contrast. One or more of the following individualized dose reduction techniques were utilized for this examination: 1. Automated exposure control. 2. Adjustment of the mA and/or kV according to patient size. 3. Use of iterative reconstruction technique. COMPARISON: 12/05/2014. FINDINGS: There is no intracranial hemorrhage. Hypoattenuation within the periventricular white matte r indicates mild to moderate chronic microangiopathic change. Prominence of the lateral ventricles an d hemispheric sulci indicates mild atrophy. The visualized paranasal sinuses appear clear. The orbits are unremarkable. The temporal bones are un remarkable. The calvarium reveals no suspicious lesions. There are atherosclerotic calcifications of the internal carotid arteries. IMPRESSION: 1. No acute intracranial findings. 2. Mild atrophy and mild to moderate chronic microangiopathic white matter change. Electronically signed by: Kiya Dejesus MD (07/29/2021 1:42 PM) [id number]
[2021-07-29 13:46] LABS: BASO # 0.1 x10^3/uL (0.0-0.2); BASO % 1 % (0-3); EOS # 0.1 x10^3/uL (0.0-0.7); EOS % 1 % (0-3); HEMATOCRIT 38.4 % (39.0-53.0); HEMOGLOBIN 12.1 g/dL (13.0-17.5); LYMPH # 1.1 x10^3/uL (1.0-4.8); LYMPH % 8 % (24-48); MEAN CORPUSCULAR HEMOGLOBIN 25 pg (25-35); MEAN CORPUSCULAR HGB CONC 32 g/dL (31-37); MEAN CORPUSCULAR VOLUME 79 fL (79-100); MONO # 0.8 x10^3/uL (0.0-1.1); MONO % 6 % (0-9); NEUT # 11.9 x10^3uL (1.8-7.7); NEUT % 85 % (31-73); PLATELET COUNT 570 x10^3/uL (140-400); RED BLOOD COUNT 4.88 x10^6/uL (4.30-5.70); RED CELL DISTRIBUTION WIDTH 15.8 % (11.5-14.5)
[2021-07-29 13:56] LABS: CALCIUM 8.4 mg/dL (8.5-10.1); CREATININE 0.9 mg/dL (0.7-1.3); GFR 83.7; POTASSIUM 3.9 mmol/L (3.5-5.1)
[2021-07-29] MEDS ORDERED: IV NORMAL SALINE 1,000ML 1,000 ML IV ONE (14:00)
[2021-07-29 14:02] LABS: ALBUMIN 2.5 g/dL (3.4-5.0); ALBUMIN/GLOBULIN RATIO 0.7 (1.0-1.7); TOTAL BILIRUBIN 0.5 mg/dL (0.2-1.0); TOTAL PROTEIN 6.1 g/dL (6.4-8.2)
[2021-07-29] MEDS ORDERED: ASPIRIN 325 MG TABLET PO ONE (15:30)
[2021-07-29] MEDS ORDERED: ONDANSETRON PF 4 MG/2 ML VIAL. IVP PRN (15:30)
--- NOTE | 2021-07-29 15:35 | EKG ---
[address] [address] Test Date: 2021-07-29 Test Time: 13:19:26 Pat Name: SAVI MEDINA Department: Room: Gender: M Armature Varnisher: PRATIMA : 1950 Requested By: WILL RICARDO Order Number: [id number] Reading MD: Stephan Calderon MD Measurements Intervals [place] Rate: 81 P: -24 MI: 134 QRS: -43 QRSD: 96 T: 24 QT: 384 QTc: 447 Interpretive Statements SINUS RHYTHM Electronically Signed On 07-29-2021 15:35:36 ARMATURE VARNISHER by Stephan Calderon MD
[2021-07-29] MEDS: ACETAMINOPHEN 325 MG TABLET PO PRN ×2 (16:00→20:51)
[2021-07-29 16:37] LABS: BACTERIA,URINE 0 /HPF (0-FEW); BILIRUBIN,URINE NEG (NEG); CLARITY,URINE CLEAR; COLOR,URINE YELLOW; GLUCOSE,URINE 500 mg/dL (NEG); NITRITE,URINE NEG (NEG); WBC,URINE OCC /HPF (0-4)
[2021-07-29 18:14] VITALS: BP 169/89
--- NOTE | 2021-07-29 18:23 | NUR ---
PATIENT IS 71 Y O MALE ARRIVED VIA EMS, ADMITTED BY DR. RAY. PT IS A/O X 4, DENIED ANY PAIN AT THIS TIME. PATIENT IS ORIENTED TO THE ROOM AND HOSPITAL POLICIES. PATIENT IS CURRENTLY IN A BED AWAKE AND EATING HIS DINNER.
--- NOTE | 2021-07-29 18:25 | NUR ---
DR HINOJOSA HAS BEEN CALLED FOR CONSULT.
[2021-07-29 23:53] VITALS: BP 120/73
[2021-07-30 05:59] VITALS: BP 156/91
--- NOTE | 2021-07-30 07:36 | PDOC2 ---
CARDIAC CONSULT DATE OF CONSULT DOS: DATE: 07/30/21 TIME: 07:31 REASON FOR CONSULT Reason for Consult Elevated troponin REFERRING PHYSICIAN Referring Physician Dr. Devi SOURCE Source: Chart review, Patient HPI History of Present Illness This is a 71 yo male who presented secondary to weakness, fatigue, and vision changes. Troponin level noted to be mildly elevated, which prompted this consult. Patient test positive for COVID about a week ago. He denies any worsening shortness of breath, dizziness, chest pain, or nausea/vomiting. Does report blurred vision has resolved and is feeling well this morning. Would like to be discharged home. PAST MEDICAL HISTORY Cardiovascular: CHF, HTN, hyperipidemia Pulmonary: Other (RUTH) GI: GERD Renal/: Benign prostatic enlarg. Endocrine: Hypothyroidism PAST SURGICAL HISTORY Past Surgical History: Tonsillectomy FAMILY HISTORY Family History: Family History Unknown SOCIAL HISTORY Smoke: No ALCOHOL: none Drugs: None Lives: Alone CURRENT MEDICATIONS Current Medications Current Medications Sodium Chloride 1,000 ml @ 1,000 mls/hr 1X ONCE IV Last administered on 07/29/21at 15:59; Start 07/29/21 at 14:00; Stop 07/29/21 at 14:59; Status DC Aspirin (Alisia Aspirin) 325 mg 1X ONCE PO Last administered on 07/29/21at 15:59 ; Start 07/29/21 at 15:30; Stop 07/29/21 at 15:31; Status DC Ondansetron HCl (Zofran) 4 mg PRN Q4HRS PRN IVP NAUSEA/VOMITING; Start 07/29/21 at 15:30; Stop 07/30/21 at 15:29 Acetaminophen (Tylenol) 650 mg PRN Q4HRS PRN PO FEVER > 100.3'F Last administer ed on 07/29/21at 20:51; Start 07/29/21 at 15:30; Stop 07/30/21 at 15:29 Active Scripts Active Levsin-Sl (Hyoscyamine Sulfate) 0.125 Mg Tab.subl 0.125 Mg SL Q4-6HRS PRN Reported Alprazolam 0.5 Mg Tablet 1 Tab PO DAILY Zolpidem Tartrate 5 Mg Tablet 10 Mg PO PRN QHS PRN [place]-3 ([place]-3 Fatty Acids) 1,000 Mg Capsule 1,000 Mg PO DAILY Flomax (Tamsulosin Hcl) 0.4 Mg Cap.er.24h 1 Cap PO DAILY Euthyrox (Levothyroxine Sodium) 175 Mcg Tablet 175 Mcg PO DAILY Hydrochlorothiazide Tablet (Hydrochlorothiazide) 12.5 Mg Tablet 12.5 Mg PO DAILY Basaglar Geovanypen U-100 (Insulin Glargine,Hum.rec.anlog) 100 Unit/1 Ml Insuln.pen 30 Unit SQ QHS Metformin Hcl 500 Mg Tablet 500 Mg PO TIDWMEALHC Atorvastatin Calcium 40 Mg Tablet 40 Mg PO QHS [fish oil] Centrum Silver Tablet (Multivits-Min/Fa/Lycopene/Lut) 1 Each Tablet 1 Each PO ALLERGIES Allergies: Coded Allergies: No Known Drug Allergies (Unverified , 12/24/18) ROS Review of Systems 14 point ROS conducted with pertinent positives noted above in HPI PHYSICAL EXAM General: Alert, Oriented X3, Cooperative, No acute distress HEENT: Atraumatic, Mucous membr. moist/pink Lungs: Clear to auscultation Heart: Regular rate Abdomen: Soft, No tenderness Extremities: No edema, Normal pulses Skin: No breakdown Neuro: Normal speech, Sensation intact Psych/Mental Status: Mental status NL, Mood NL MUSCULOSKELETAL: Osteoarthritic changes both hands VITALS Vital Signs Vital Signs Date Time Temp Pulse Resp B/P (MAP) Pulse Ox O2 Delivery O2 Flow Rate FiO2 07/30/21 05:59 97.0 73 18 156/91 (112) 94 Nasal Cannula 2.0 LABS LABS Laboratory Tests Test 07/29/21 13:20 07/29/21 15:55 07/29/21 19:58 White Blood Count 14.0 x10^3/uL (4.0-11.0) Red Blood Count 4.88 x10^6/uL (4.30-5.70) Hemoglobin 12.1 g/dL (13.0-17.5) Hematocrit 38.4 % (39.0-53.0) Mean Corpuscular Volume 79 fL (79-100) Mean Corpuscular Hemoglobin 25 pg (25-35) Mean Corpuscular Hemoglobin Concent 32 g/dL (31-37) Red Cell Distribution Width 15.8 % (11.5-14.5) Platelet Count 570 x10^3/uL (140-400) Neutrophils (%) (Auto) 85 % (31-73) Lymphocytes (%) (Auto) 8 % (24-48) Monocytes (%) (Auto) 6 % (0-9) Eosinophils (%) (Auto) 1 % (0-3) Basophils (%) (Auto) 1 % (0-3) Neutrophils # (Auto) 11.9 x10^3uL (1.8-7.7) Lymphocytes # (Auto) 1.1 x10^3/uL (1.0-4.8) Monocytes # (Auto) 0.8 x10^3/uL (0.0-1.1) Eosinophils # (Auto) 0.1 x10^3/uL (0.0-0.7) Basophils # (Auto) 0.1 x10^3/uL (0.0-0.2) Sodium Level 126 mmol/L (136-145) Potassium Level 3.9 mmol/L (3.5-5.1) Chloride Level 92 mmol/L (98-107) Carbon Dioxide Level 26 mmol/L (21-32) Anion Gap 8 (6-14) Blood Urea Nitrogen 21 mg/dL (8-26) Creatinine 0.9 mg/dL (0.7-1.3) Estimated GFR (Cockcroft-Gault) 83.7 BUN/Creatinine Ratio 23 (6-20) Glucose Level 293 mg/dL (70-99) Calcium Level 8.4 mg/dL (8.5-10.1) Total Bilirubin 0.5 mg/dL (0.2-1.0) Aspartate Amino Transf (AST/SGOT) 47 U/L (15-37) Alanine Aminotransferase (ALT/SGPT) 95 U/L (16-63) Alkaline Phosphatase 96 U/L (46-116) Troponin I High Sensitivity 127 ng/L (4-75) 128 ng/L (4-75) Total Protein 6.1 g/dL (6.4-8.2) Albumin 2.5 g/dL (3.4-5.0) Albumin/Globulin Ratio 0.7 (1.0-1.7) Urine Collection Type Clean catch Urine Color Yellow Urine Clarity Clear Urine pH 7.0 Urine Specific [place] 1.020 Urine Protein Neg (NEG-TRACE) Urine Glucose (UA) 500 mg/dL (NEG) Urine Ketones (Stick) Neg mg/dL (NEG) Urine Blood Trace (NEG) Urine Nitrite Neg (NEG) Urine Bilirubin Neg (NEG) Urine Urobilinogen Dipstick 1.0 mg/dL (0.2 mg/dL) Urine Leukocyte Esterase Neg (NEG) Urine RBC 11-20 /HPF (0-2) Urine WBC Occ /HPF (0-4) Urine Squamous Epithelial Cells None /LPF Urine Bacteria 0 /HPF (0-FEW) ASSESSMENT/PLAN Assessment/Plan 1. Weakness, fatigue, vision changes 2. COVID + 3. Mild troponin elevation; high sensitivity trop 128. Most probably type II, demand ischemia. 4. Hyponatremia 5. Hypertension; controlled 6. Hyperlipidemia 7. Diabetes, II 8. Hypothyroidism Recommendations Trend trop to note peak Lipids, TSH Outpatient echo Consider outpatient ischemic evaluation Supportive care ASIF GOTTI APRN Jul 30, 2021 07:36
[2021-07-30 08:17] LABS: CALCIUM 8.2 mg/dL (8.5-10.1); CREATININE 0.6 mg/dL (0.7-1.3); GFR 133.6; POTASSIUM 4.1 mmol/L (3.5-5.1)
--- NOTE | 2021-07-30 08:18 | NUR ---
NURSE NOTE PT AWAKE AND ALERT IN BED. PT STATES HE IS NOT IN ANY PAIN OR DISCOMFORT BUT IS AGITATED THAT HE DID NOT SLEEP WELL LASTNIGHT DUE TO NOT HAVING HIS SLEEPING PILL. PT ALSO VERBALIZES HE WANTED A CERTAIN MENU FOR BREAKFAST AND DID NOT GET A CHOICE. PT IS UP ADLIB WITH VOIDING. TELE ON, NORMAL SINUS. ASSESSMENT COMPLETE. AWAITING ORDERS FOR MEDICATIONS.
[2021-07-30] MEDS ORDERED: metFORMIN 500 MG TABLET PO SCH (09:00)
[2021-07-30] MEDS: ACETAMINOPHEN 325 MG TABLET PO PRN ×2 (09:27→10:01)
[2021-07-30] MEDS ORDERED: hydroCHLOROthiazide 12.5 MG CAPSULE PO SCH (09:30)
[2021-07-30] MEDS ORDERED: ASPIRIN 325 MG TABLET PO SCH (09:30)
--- NOTE | 2021-07-30 09:53 | HP ---
DATE OF SERVICE: 07/30/2021 ADMIT DATE: 07/29/2021 ATTENDING PHYSICIAN: Dr. Hendrix. CHIEF COMPLAINT: Blurred vision and tired. He also has some right-sided numbness. HISTORY OF PRESENT ILLNESS: The patient is a 71-year-old gentleman who presented with vague symptoms of blurred vision, feeling tired, some numbness that resolved, weakness of the right hand. He has multiple risk factors for stroke. CT of the head was nondiagnostic. He was admitted then with a slight elevation of troponin, symptoms of a TIA and for further evaluation. PAST MEDICAL HISTORY: Significant for type 2 diabetes, hypertension, hypothyroidism, on replacement. He had throat cancer treated with radiation. He has had a tonsillectomy. PAST SURGICAL HISTORY: Other surgical history includes hernia repair and knee surgery. SOCIAL HISTORY: He was a smoker remotely. He does not drink any alcohol. CURRENT MEDICATIONS: Reviewed. He has no recorded drug allergies. He was on scheduled thyroid replacement, Xanax, Lipitor, hydrochlorothiazide, hyoscyamine, regular insulin, Synthroid, metformin, multivitamin, omega 3, fish oil, Flomax, and Ambien at bedtime. FAMILY HISTORY: Noncontributory. REVIEW OF SYSTEMS: Significant for the throat surgery, treated 7 years ago with radiation. He is in remission. He does not have dysphagia. No recent COVID exposure, but he is not symptomatic. All other systems reviewed and turned out to be negative. PHYSICAL EXAMINATION: GENERAL: When I saw him, this is a pleasant, middle-aged gentleman. VITAL SIGNS: Initial vital signs showed a blood pressure of 120/73, pulse is 73 and regular, he was afebrile, oxygen saturation 93% on room air. HEENT: Head is without trauma. Pupils are reactive. Sclerae nonicteric. Oropharynx clear. NECK: Supple. No bruits. LUNGS: Clear. CARDIOVASCULAR: Showed regular heart tones. ABDOMEN: Soft. EXTREMITIES: Without edema. NEUROLOGIC FINDINGS: Focally intact. Police Sergeant were intact. Speech is fluent. LABORATORY STUDIES: Hemoglobin is 12.1 g/dL, white count 14,100. His troponin was slightly elevated at 127, repeated was 128. His creatinine is 0.6 mg percent. Electrolytes within normal range. Nonfasting blood sugar 210. ASSESSMENT: 1. A 71-year-old gentleman with transient ischemic attack symptoms with right-sided weakness and some blurred vision, resolved. 2. History of throat cancer, treated. 3. Essential hypertension, labile. 4. Type 2 diabetes. 5. Hypothyroidism after cancer, treated. PLAN: 1. Observation status. 2. Formal Neurology consult. 3. Serial enzymes. 4. Formal Cardiology consult. 5. Start Plavix. 6. Continue home meds. DANIEL/STEVIE DR: Lorne TID: [id number] CC: Forest Adame MD
--- NOTE | 2021-07-30 10:47 | NUR ---
DISCHARGE NOTE PT IV OUT AND TELE OFF. PATIENT WAS OFFERED MORE CLOTHES BUT STATES HIS SON IS BRINGING HIM CLOSE AND HE DOESNT WANT ANY MORE. PT IS A&OX4. DISCHARGE INSTRUCTIONS FOR MEDICATIONS, FOLLOW UP AND ACTIVITY GIVEN -- PT VERBALIZED UNDERSTANDING. PT HAD NO COMPLAINTS OF PAIN OR DISCOMFORT. HE WAS PICKED UP BY SON.
--- NOTE | 2021-07-30 11:24 | DS ---
DATE OF DISCHARGE: 07/30/2021 ATTENDING PHYSICIAN: Dr. Hendrix. FINAL DISCHARGE DIAGNOSES: 1. Transient ischemic attack, symptoms resolved. 2. Recent COVID infection, asymptomatic. 3. Type 2 diabetes. 4. History of throat cancer, in remission. 5. Hypothyroidism, on replacement. 6. Paresthesias, resolved. 7. Labile hypertension. 8. Hyperlipidemia. 9. Degenerative arthritis. 10. Gastroesophageal reflux disease. 11. Benign prostatic hypertrophy. HISTORY AND PHYSICAL: The patient is a pleasant 71-year-old gentleman, admitted through the ED with vague symptoms of weakness and blurred vision, symptoms consistent with a TIA. He has multiple risk factors. By the time I saw him the next morning, he was back to his baseline. PHYSICAL EXAMINATION: Please see my dictated note. PERTINENT LABORATORY AND X-RAY STUDIES: On the database. Imaging studies showed no acute strokes. Hemoglobin was 12.1 grams, white count 14,000. Electrolytes within normal range. Transaminases were normal. Two sets of cardiac enzymes slightly above the normal high sensitive fourth generation range. This was due to stress demand ischemia. COURSE IN THE HOSPITAL: The patient was admitted and monitored. He was stable and improved back to his baseline. Blood pressure was monitored. Blood sugars were also monitored. Formal neurology consultation was entertained. Dr. Segal's workup will include further outpatient visit. He recommended an aspirin. I went ahead and elected to treat him with Plavix 75 mg p.o. daily, given his symptoms and his risk factors. Cardiology saw him in consultation. They are not concerned about the slight elevation of highly sensitive troponin. He wanted to go home. I felt this is reasonable. I wrote him a script for Plavix 75 mg daily. I also encouraged him to monitor his blood pressure at home by getting a kit and recording it. I suggest a followup visit with Dr. Adame in 2 weeks' time. Therefore, his home medications are as follows: He will continue his insulin regimen, Synthroid, hyoscyamine, Flomax, Lipitor, omega-3 fish oil, alprazolam p.r.n., zolpidem at bedtime, hydrochlorothiazide, metformin 1000 b.i.d., insulin as scheduled, Synthroid 175 mcg daily, multivitamin along with the addition of Plavix 75 mg p.o. daily. I suggest a followup visit with Dr. Adame in 2 weeks' time. He was discharged then from our hospital in a stable condition with explicit drug and followup care. RAMO DR: Lorne TID: [id number] CC: Forest Adame MD
[2021-07-30 15:35] LABS: CHOLESTEROL/HDL RATIO 4.2
--- NOTE | 2021-07-30 21:44 | CONS ---
NEUROLOGY CONSULT REFERRING PHYSICIAN: Dr. Hendrix. REASON FOR CONSULTATION: Rule out transient ischemic attack versus stroke. HISTORY OF PRESENT ILLNESS: This is a 71-year-old right-handed male who was admitted through Emergency Room after he presented with chief complaints of generalized weakness, fatigue and intermittent blurred vision began on the day of admission. According to the patient, he has had blurred vision intermittently throughout the day yesterday, associated with numbness and paresthesia of the right upper extremity. The patient also complains of numbness and tingling of the legs below the knees. He was told he has peripheral neuropathy in the lower extremity, but he never saw a neurologist or had a nerve and muscle study. He also complains of intermittent congestions in the chest. This morning, the patient stated his headache has gone and he related that to sleeping well last night and also numbness and paresthesia of the right upper extremity resolved and he denies any blurred vision this morning. The patient denies dysphagia, dysarthria, weakness or vertigo. He denies chest pain or shortness of breath. PAST MEDICAL HISTORY: The patient was diagnosed with COVID-19 a week ago when he presented with generalized weakness and congestions of the chest. Other medical problems include diabetes mellitus, hypertension, hyperlipidemia, congestive heart failure, obstructive sleep apnea, GERD, benign prostate hypertrophy and hypothyroidism along with possible neuropathy in the lower extremities. FAMILY HISTORY: Noncontributory. SOCIAL HISTORY: The patient smokes marijuana daily to relieve his symptoms. PAST SURGICAL HISTORY: Left foot and knee surgeries and a hernia repair. CURRENT HOME MEDICATIONS: Metformin 500 mg twice daily, Tylenol 650 p.r.n., and Zofran. Other home medications include alprazolam 0.5 mg 1 tablet daily p.r.n. for anxiety, Lipitor 40 mg daily, hydrochlorothiazide 12.5 mg daily, hyoscyamine sulfate 0.125 mg sublingually every 4-6 hours p.r.n. as needed, insulin Humalog 30 units subQ at bedtime, levothyroxine 175 mcg p.o. daily, multivitamins, omega 3 1000 mg daily, tamsulosin 0.4 mg capsule daily, zolpidem 5 mg at bedtime for sleep. ALLERGIES: No known drug allergies. REVIEW OF SYSTEMS: A 10-point review of system was performed as mentioned above in history of present illness, otherwise unremarkable. PHYSICAL EXAMINATION: GENERAL: Well-developed, well-nourished obese male not in acute distress. He weighs 102.7 kilos. VITAL SIGNS: Blood pressure 156/91, respiratory rate 18, pulse is 73 and regular, temperature 97, oxygen saturation 94% on 2 liters per nasal cannula. HEENT: Normocephalic, atraumatic, otherwise unremarkable. NECK: Supple, negative for carotid bruit, lymphadenopathy or thyromegaly. LUNGS: Clear to A and P. CARDIOVASCULAR: Regular rate and rhythm, normal S1, S2. There is no S3, S4, murmur. ABDOMEN: Soft. Bowel sounds positive. EXTREMITIES: Negative for cyanosis, clubbing or pedal edema. NEUROLOGIC: Mental status: The patient is alert and oriented x 3. The speech is fluent. There is no language dysfunction. Memory, judgment and abstracting thinking are normal. The patient denies hallucination or delusion. Cranial nerves: Visual kelly are full. The pupils are reactive to light and accommodation. The extraocular movements are intact. There is no nystagmus. There is no facial motor or sensory deficit. Hearing is intact bilaterally. The palate is elevated symmetrically. Sternocleidomastoid muscles are powerful bilaterally. The patient shrugs his shoulders symmetrically and protrudes his tongue in the midline without fasciculation or atrophy. Motor exam: No focal muscle bulk wasting. The tone is normal. The strength is 5/5 throughout. Sensory examination revealed normal pinprick and light touch senses in the upper extremities and diminished pinprick and light touch senses in distal lower extremities in patchy distributions. Deep tendon reflexes were symmetric and active with absent Achilles responses. Gait: The stance is steady but Romberg stance is positive. LABORATORY DATA: CBC revealed blood cells of 14,000, hemoglobin 12.1, hematocrit 38.4, platelet count 570,000. Chemistry revealed sodium of 132, potassium 4.1, chloride 95, CO2 of 29, BUN 12, creatinine 0.6, glucose is 210, calcium 8.2. Troponin level is 141. Urinalysis is negative urinary leukocyte esterase and nitrate with white blood cells of 11-20. DIAGNOSTIC DATA: A head CT scan without contrast revealed no acute intracranial process, but showed mild atrophy with moderate chronic small vessel ischemic changes. Chest x-ray revealed bilateral infiltrates have improved, but not completely. IMPRESSION: 1. Possible transient ischemic attack, presented with intermittent blurred vision and right upper extremity paresthesia -- resolved. 2. History of numbness and paresthesia of the lower extremity below the knee, may represent diabetic neuropathy 3. Multiple medical problems include diabetes mellitus, hypertension, hyperlipidemia, history of congestive heart failure, obstructive sleep apnea, hypothyroidism, abnormal head CT scan consistent with chronic small vessel ischemic changes, moderate hyponatremia and leukocytosis. RECOMMENDATIONS: 1. Correct hyponatremia slowly. 2. Continue with current medical care initiated by Dr. Hendrix. 3. Treat the underlying hypertension, diabetes mellitus and hyperlipidemia. 4. We will arrange for EMG/NCS of the lower extremities to rule out peripheral neuropathy versus entrapment neuropathy or lumbosacral radiculopathy. 5. Aspirin 81 mg p.o. daily. 6. If the patient has recurrent TIA, he should have a CT angio of the neck and brain. CHEL/KEDAR DR: Ramón TID: [id number]
[2021-07-31 10:16] LABS: THYROID STIM HORMONE (TSH) 0.175 uIU/mL (0.358-3.740)
== END 2021-07-30 10:45 | disposition home or self-care (01) ==
LOC: ER 13:02 → INTOOBSV 15:23 → ER HOLD 15:23 → 1 SOUTH 16:46
PROVIDERS: ADMIT Hospitalist; ATTEND Hospitalist
DX: U07.1 COVID-19 (principal); G45.9 Transient cerebral ischemic attack, unspecified; I11.0 Hypertensive heart disease with heart failure; I50.9 Heart failure, unspecified; E11.9 Type 2 diabetes mellitus without complications; E03.9 Hypothyroidism, unspecified; E78.5 Hyperlipidemia, unspecified; E87.1 Hypo-osmolality and hyponatremia; K21.9 Gastro-esophageal reflux disease without esophagitis; N40.0 Benign prostatic hyperplasia without lower urinary tract symptoms; F12.90 Cannabis use, unspecified, uncomplicated; I24.8 Other forms of acute ischemic heart disease; M19.90 Unspecified osteoarthritis, unspecified site; G47.33 Obstructive sleep apnea (adult) (pediatric); H53.8 Other visual disturbances; R77.8 Other specified abnormalities of plasma proteins; Z79.02 Long term (current) use of antithrombotics/antiplatelets; Z79.4 Long term (current) use of insulin; Z79.84 Long term (current) use of oral hypoglycemic drugs; Z79.890 Hormone replacement therapy; Z85.819 Personal history of malignant neoplasm of unspecified site of lip, oral cavity, and pharynx; Z87.891 Personal history of nicotine dependence; Z92.3 Personal history of irradiation; Z79.899 Other long term (current) drug therapy; Z98.890 Other specified postprocedural states; Z90.49 Acquired absence of other specified parts of digestive tract
CPT/HCPCS: 36415; 70450; 71045; 80048; 80053; 80061; 81001; 82947; 84443; 84484; 85025; 93005; 96360; 99285; G0378; J7030; G0379

== ENCOUNTER 2021-08-08 10:33 | Emergency (ER) | payer MEDICARE, OTHER ==
[~2021-08-08] VITALS: Ht 177.8 cm; Wt 97.7 kg
[2021-08-08] MEDS ORDERED: PENICILLIN G BENZATHINE LA 1,200,000 UNIT/2 ML DISP.SYRIN. IM ONE (11:15)
[2021-08-08] MEDS ORDERED: IV NORMAL SALINE 1,000ML 1,000 ML IV ONE (11:15)
--- NOTE | 2021-08-08 11:18 | EKG ---
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
--- NOTE | 2021-08-08 11:22 | PHYS DOC ---
Past History Past Medical History: Cancer, Diabetes, Hypertension, Hypothyroid Additional Past Medical Histor: BPH, insomnia Past Surgical History: Cancer Surgery, Tonsillectomy, Other Additional Past Surgical Histo: hernia repair, L foot and knee surgery Smoking: Quit Greater Than 1 Year Alcohol Use: Sober Drug Use: Marijuana General Adult EDM: Chief Complaint: SORE THROAT HPI: HPI: Male presents with sore throat. Patient has had COVID-19, minor stroke, pneumonia over the last couple months. For the last few days he has had a very sore throat. He cannot drink anything or eat anything due to pain. He is concerned for dehydration. He has not measured a fever at home. Review of Systems: Review of Systems: Constitutional: Denies fever or chills Eyes: Denies change in visual acuity HENT: sore throat Respiratory: Denies cough or shortness of breath Cardiovascular: Denies chest pain or edema GI: Denies abdominal pain, nausea, vomiting, bloody stools or diarrhea : Denies dysuria Musculoskeletal: Denies back pain or joint pain Integument: Denies rash Neurologic: Denies headache, focal weakness or sensory changes Endocrine: Denies polyuria or polydipsia Lymphatic: Denies swollen glands Psychiatric: Denies depression or anxiety Current Medications: Current Meds: Current Medications Medications (Trade) Dose Ordered Sig/Pito Start Time Stop Time Status Last Admin Dose Admin Penicillin G Benzathine (Bicillin L-A) 1,200,000 unit 1X ONCE 08/08/21 11:15 08/08/21 11:16 UNV Sodium Chloride 1,000 ml @ 1,000 mls/hr 1X ONCE 08/08/21 11:15 08/08/21 12:14 UNV Allergies: Allergies: Allergies Coded Allergies Type Severity Reaction Last Updated Verified No Known Drug Allergies 12/24/18 No Physical Exam: PE: Constitutional: Well developed, well nourished, no acute distress, non-toxic appearance. [] HENT: Normocephalic, atraumatic, bilateral external ears normal, oropharynx dry, erythematous with tonsillar fossa exudate on the right, nose normal. [] Eyes: PERRLA, EOMI, conjunctiva normal, no discharge. [] Neck: Normal range of motion, no tenderness, supple, no stridor. [] Cardiovascular: Heart rate regular rhythm, no murmur [] Lungs & Thorax: Bilateral breath sounds clear to auscultation [] Abdomen: Bowel sounds normal, soft, no tenderness, no masses, no pulsatile masses. [] Skin: Warm, dry, no erythema, no rash. [] Back: No tenderness, no CVA tenderness. [] Extremities: No tenderness, no cyanosis, no clubbing, ROM intact, no edema. [] Neurologic: Alert and oriented X 3, normal motor function, normal sensory function, no focal deficits noted. [] Psychologic: Affect normal, judgement normal, mood normal. [] Current Patient Data: Vital Signs: Vital Signs Date Time Temp Pulse Resp B/P (MAP) Pulse Ox O2 Delivery O2 Flow Rate FiO2 08/08/21 10:53 98.5 101 16 121/75 (90) 96 Room Air EKG: EKG: [] Radiology/Procedures: Radiology/Procedures: [] Heart Score: C/O Chest Pain: N/A Risk Factors: Risk Factors: DM, Current or recent (<one month) smoker, HTN, HLP, family history of CAD, obesity. Risk Scores: Score 0 - 3: 2.5% MACE over next 6 weeks - Discharge Home Score 4 - 6: 20.3% MACE over next 6 weeks - Admit for Clinical Observation Score 7 - 10: 72.7% MACE over next 6 weeks - Early Invasive Strategies Course & Med Decision Making: Course & Med Decision Making Pertinent Labs and Imaging studies reviewed. (See chart for details) The patient exam is consistent with strep pharyngitis. I will treat him with Bicillin IM injection. Patient has requested a liter of fluids and given his dehydration I think this is reasonable. Patient has elevated white count and mild anemia. He also has a slightly low sodium which is similar to previous in the chart. He is stable for discharge at this time. [] Dragon Disclaimer: Dragon Disclaimer: This electronic medical record was generated, in whole or in part, using a voice recognition dictation system. Departure Departure: Impression: Primary Impression: Strep pharyngitis Disposition: HOME / SELF CARE / HOMELESS Condition: STABLE Referrals: DEON ECKERT MD (PCP) Patient Instructions: Strep Throat, [id number] WILL RICARDO DO Aug 08, 2021 11:22
[2021-08-08 11:29] LABS: BASO # 0.1 x10^3/uL (0.0-0.2); BASO % 0 % (0-3); EOS # 0.1 x10^3/uL (0.0-0.7); EOS % 1 % (0-3); HEMATOCRIT 35.7 % (39.0-53.0); HEMOGLOBIN 11.5 g/dL (13.0-17.5); LYMPH # 0.9 x10^3/uL (1.0-4.8); LYMPH % 8 % (24-48); MEAN CORPUSCULAR HEMOGLOBIN 26 pg (25-35); MEAN CORPUSCULAR HGB CONC 32 g/dL (31-37); MEAN CORPUSCULAR VOLUME 80 fL (79-100); MONO # 0.6 x10^3/uL (0.0-1.1); MONO % 5 % (0-9); NEUT # 9.9 x10^3uL (1.8-7.7); NEUT % 85 % (31-73); PLATELET COUNT 363 x10^3/uL (140-400); RED BLOOD COUNT 4.47 x10^6/uL (4.30-5.70); RED CELL DISTRIBUTION WIDTH 16.6 % (11.5-14.5); WHITE BLOOD COUNT 11.6 x10^3/uL (4.0-11.0)
[2021-08-08 11:33] LABS: CALCIUM 9.1 mg/dL (8.5-10.1); CREATININE 0.8 mg/dL (0.7-1.3); GFR 95.8
[2021-08-08 11:39] LABS: ALBUMIN 2.5 g/dL (3.4-5.0); ALBUMIN/GLOBULIN RATIO 0.5 (1.0-1.7); TOTAL BILIRUBIN 0.5 mg/dL (0.2-1.0); TOTAL PROTEIN 7.3 g/dL (6.4-8.2)
[2021-08-08 12:06] VITALS: BP 120/73
== END 2021-08-08 12:16 | disposition home or self-care (01) ==
LOC: ER 10:33
DX: J02.0 Streptococcal pharyngitis (principal); E11.9 Type 2 diabetes mellitus without complications; I10 Essential (primary) hypertension; E03.9 Hypothyroidism, unspecified; Z87.891 Personal history of nicotine dependence
CPT/HCPCS: 36415; 80053; 85025; 93005; 96360; 96372; 99284; J0561; J7030

== ENCOUNTER 2021-09-27 11:54 | Emergency (ER) | payer MEDICARE, OTHER ==
[~2021-09-27] VITALS: Ht 177.8 cm; Wt 100.0 kg
--- NOTE | 2021-09-27 13:58 | RAD ---
PA and lateral chest. HISTORY: Cough PA and lateral views the chest were compared with a prior study from 2019 and more recent studies fro july. Heart is normal in size. Aorta is tortuous. There is mild atelectasis or infiltrate in the left lower lobe. The bilateral infiltrates noted from July have otherwise cleared. IMPRESSION: 1. Improving infiltrates with mild residual infiltrate left lung base. 2. No effusion. Electronically signed by: Jabari Russell MD (09/27/2021 1:55 PM) [facility]
[2021-09-27] MEDS ORDERED: predniSONE 20 MG TABLET ONE (14:25)
[2021-09-27] MEDS ORDERED: predniSONE 10 MG TABLET. ONE (14:25)
[2021-09-27] MEDS ORDERED: predniSONE 10 MG TABLET. PO ONE (14:30)
[2021-09-27] MEDS ORDERED: IPRATRPIUM/ALBUTEROL 0.5/2.5MG 3 ML NEBU. NEB ONE (14:30)
[2021-09-27] MEDS ORDERED: predniSONE 20 MG TABLET PO ONE (14:30)
[2021-09-27] MEDS ORDERED: ALBUTEROL SULFATE 2.5 MG/3 ML NEBU. NEB ONE (14:30)
[2021-09-27] MEDS ORDERED: IPRATRPIUM/ALBUTEROL 0.5/2.5MG 3 ML NEBU. ONE (14:31)
[2021-09-27 15:03] LABS: BASO # 0.1 x10^3/uL (0.0-0.2); BASO % 1 % (0-3); EOS # 0.4 x10^3/uL (0.0-0.7); EOS % 4 % (0-3); HEMOGLOBIN 11.9 g/dL (13.0-17.5); LYMPH # 1.6 x10^3/uL (1.0-4.8); LYMPH % 18 % (24-48); MEAN CORPUSCULAR HEMOGLOBIN 26 pg (25-35); MEAN CORPUSCULAR HGB CONC 32 g/dL (31-37); MEAN CORPUSCULAR VOLUME 80 fL (79-100); MONO # 0.5 x10^3/uL (0.0-1.1); MONO % 6 % (0-9); NEUT # 6.4 x10^3uL (1.8-7.7); NEUT % 71 % (31-73); PLATELET COUNT 286 x10^3/uL (140-400); RED BLOOD COUNT 4.64 x10^6/uL (4.30-5.70); RED CELL DISTRIBUTION WIDTH 17.8 % (11.5-14.5)
[2021-09-27 15:06] LABS: CREATININE 0.7 mg/dL (0.7-1.3); GFR 111.8; POTASSIUM 4.1 mmol/L (3.5-5.1)
[2021-09-27 15:18] LABS: ALBUMIN 3.1 g/dL (3.4-5.0); ALBUMIN/GLOBULIN RATIO 0.8 (1.0-1.7); TOTAL BILIRUBIN 0.4 mg/dL (0.2-1.0); TOTAL PROTEIN 6.8 g/dL (6.4-8.2)
[2021-09-27] MEDS ORDERED: DOXY100T PO (16:41)
[2021-09-27] MEDS ORDERED: PRED50TA PO (16:41)
[2021-09-27] MEDS ORDERED: ALBU2.5V8 IH (16:41)
--- NOTE | 2021-09-27 16:41 | PHYS DOC ---
Past History Past Medical History: Cancer, Diabetes, Hypertension, Hypothyroid Additional Past Medical Histor: BPH, insomnia Past Surgical History: Cancer Surgery, Tonsillectomy, Other Additional Past Surgical Histo: hernia repair, L foot and knee surgery Smoking: Quit Greater Than 1 Year Alcohol Use: Sober Drug Use: Marijuana Adult General Chief Complaint Chief Complaint: COUGH HPI HPI The patient is a 71-year-old male with a history of hypertension, hyperlipidemia and insulin-dependent diabetes, longstanding marijuana use. He presents for evaluation of a cough over the past 2 weeks which over the past 3 days has become a little more severe, with associated mild shortness of breath. Patient is noted to be mildly wheezing upon initial evaluation here in the emergency department. Patient denies any other focal or specific symptoms and specifically denies fevers, nausea or vomiting, upper respiratory congestion/rhinorrhea, cough, sore throat, chest pain of any kind, abdominal pain of any kind, flank pain, midline back pain, dysuria, hematuria, polyuria or oliguria, changes in bowel habits, pain or swelling to arms or legs. Vital signs are appropriate here, including oxygenation, and the patient is in no acute distress. Review of Systems Review of Systems A 12 point review of systems was completed and was negative except where noted in HPI above. Current Medications Current Medications Current Medications Medications (Trade) Dose Ordered Sig/Pito Start Time Stop Time Status Last Admin Dose Admin Albuterol Sulfate (Ventolin) 2.5 mg 1X ONCE 09/27/21 14:30 09/27/21 14:53 DC 09/27/21 14:30 2.5 MG Albuterol/ Ipratropium (Duoneb) 3 ml 1X ONCE 09/27/21 14:30 09/27/21 14:53 DC 09/27/21 14:30 3 ML Prednisone (Prednisone) 10 mg 1X ONCE 09/27/21 14:30 09/27/21 14:54 DC 09/27/21 14:30 10 MG Allergies Allergies Allergies Coded Allergies Type Severity Reaction Last Updated Verified No Known Drug Allergies 12/24/18 No Physical Exam Physical Exam 71-year-old male appearing nontoxic and in no acute distress. Head is normocephalic and atraumatic. Neck is supple and nontender. Oropharynx is moist. Lungs with mild wheezes to all kelly with good air movement bilaterally and no other adventitious sounds heard. There is a normal S1 and S2 without rubs or gallops and capillary refill is appropriate, less than 2 seconds globally. Abdomen is soft, nontender and nondistended. Skin is warm and dry without cyanosis, clubbing or edema. Psychiatrically, the patient demonstrates appropriate mood and affect and is alert. Evaluation of the extremities reveals BUEs and BLEs neurovascularly intact distally with strength 5 out of 5, sensation intact light touch in all nerve distributions, radial, DP and PT pulses 2+ and equal bilaterally, capillary refill less than 2 seconds, hands and feet warm and well-perfused. No dependent peripheral edema distally. No calf tenderness or swelling bilaterally. Homans test is negative bilaterally. Current Patient Data Lab Results Laboratory Tests Test 09/27/21 14:32 White Blood Count 9.0 x10^3/uL (4.0-11.0) Red Blood Count 4.64 x10^6/uL (4.30-5.70) Hemoglobin 11.9 g/dL (13.0-17.5) L Hematocrit 37.0 % (39.0-53.0) L Mean Corpuscular Volume 80 fL (79-100) Mean Corpuscular Hemoglobin 26 pg (25-35) Mean Corpuscular Hemoglobin Concent 32 g/dL (31-37) Red Cell Distribution Width 17.8 % (11.5-14.5) H Platelet Count 286 x10^3/uL (140-400) Neutrophils (%) (Auto) 71 % (31-73) Lymphocytes (%) (Auto) 18 % (24-48) L Monocytes (%) (Auto) 6 % (0-9) Eosinophils (%) (Auto) 4 % (0-3) H Basophils (%) (Auto) 1 % (0-3) Neutrophils # (Auto) 6.4 x10^3uL (1.8-7.7) Lymphocytes # (Auto) 1.6 x10^3/uL (1.0-4.8) Monocytes # (Auto) 0.5 x10^3/uL (0.0-1.1) Eosinophils # (Auto) 0.4 x10^3/uL (0.0-0.7) Basophils # (Auto) 0.1 x10^3/uL (0.0-0.2) Sodium Level 131 mmol/L (136-145) L Potassium Level 4.1 mmol/L (3.5-5.1) Chloride Level 96 mmol/L (98-107) L Carbon Dioxide Level 29 mmol/L (21-32) Anion Gap 6 (6-14) Blood Urea Nitrogen 13 mg/dL (8-26) Creatinine 0.7 mg/dL (0.7-1.3) Estimated GFR (Cockcroft-Gault) 111.8 BUN/Creatinine Ratio 19 (6-20) Glucose Level 144 mg/dL (70-99) H Calcium Level 9.0 mg/dL (8.5-10.1) Total Bilirubin 0.4 mg/dL (0.2-1.0) Aspartate Amino Transferase (AST) 27 U/L (15-37) Alanine Aminotransferase (ALT) 43 U/L (16-63) Alkaline Phosphatase 128 U/L (46-116) H Troponin I High Sensitivity 140 ng/L (4-75) H LU-Nln-Z-Type Natriuretic Peptide 140 pg/mL (0-124) H Total Protein 6.8 g/dL (6.4-8.2) Albumin 3.1 g/dL (3.4-5.0) L Albumin/Globulin Ratio 0.8 (1.0-1.7) L EKG EKG Sinus rhythm, rate 75, no acute ST elevation or depression, [place] 144, QRS 98, QTc 443, EP interpretation. Nonischemic tracing, intervals appropriate. Radiology/Procedures Radiology/Procedures Signed PATIENT: SAVI MEDINA ACCOUNT: [id number] : 1950 LOCATION: ER AGE: 71 SEX: M EXAM STATUS: REG ER ORD. PHYSICIAN: DEBO KIRBY MD REASON: cough, X 3 DAYS PROCEDURE: CHEST PA & LATERAL PA and lateral chest. HISTORY: Cough PA and lateral views the chest were compared with a prior study from 2018 and more recent studies from July. Heart is normal in size. Aorta is tortuous. There is mild atelectasis or infiltrate in the left lower lobe. The bilateral infiltrates noted from July have otherwise cleared. IMPRESSION: 1. Improving infiltrates with mild residual infiltrate left lung base. 2. No effusion. Electronically signed by: Jabari Russell MD (09/27/2021 1:55 PM) [facility] DICTATED AND SIGNED BY: JABARI RUSSELL MD DATE: 09/27/21 0491 CC: DEBO KIRBY MD; DEON ECKERT MD ~ Heart Score C/O Chest Pain: No Risk Factors: Risk Factors: DM, Current or recent (<one month) smoker, HTN, HLP, family history of CAD, obesity. Risk Scores: Risk Factors: DM, Current or recent (<one month) smoker, HTN, HLP, family history of CAD, obesity. Course & Med Decision Making Course & Med Decision Making Labs and imaging unremarkable aside from somewhat elevated high-sensitivity troponin, stable on 2-hour delta. Looking at lab results from the patient's hospital visit last month, troponins at that time were similar. Patient has not had any chest pain. I have advised him that the safest course of action would be admission for observation on telemetry, treatment of his likely COPD flare, attention from cardiology and further care. He declines admission, stating that he feels much better, does not have any chest pain but would prefer to go home and follow-up closely with his doctor. Advised him that he would be leaving the hospital against advice and was at risk for decompensation, permanent disability, loss of current lifestyle and even and electing to leave the hospital when admission was recommended. Patient was able to understand these risks, to restate them in his own words and agreed to be wholly responsible for them in their entirety. Advised patient that even though he was leaving against advice which is not ideal, that I would prescribe an inhaler, a steroid burst and a doxycycline prescription to treat his presenting breathing issues. Let him know that if he changes his mind and wanted to be further taken care of in the hospital setting that he could return at any time and we will be happy to take care of him. All patient questions have been answered. Dragon Disclaimer Dragon Disclaimer This electronic medical record was generated, in whole or in part, using a voice recognition dictation system. Departure Departure: Impression: Primary Impression: Acute bacterial bronchitis Additional Impression: Elevated troponin level Disposition: LEFT AGAINST MEDICAL ADVICE Condition: STABLE Referrals: DEON ECKERT MD (PCP) Patient Instructions: Acute Bronchitis Additional Instructions: As we discussed you are leaving against advice; if you change your mind and would like to return to care we will be more than happy to take care of you. Take the prednisone steroid daily for the next 5 days to treat your breathing issues and cough. Use the albuterol inhaler every 4 hours (2 puffs) as needed for wheezing and/or cough. Take the doxycycline antibiotic twice a day for the next 10 days until the prescription is gone. Return to the emergency department right away for worsening symptoms of any kind or with any other new symptoms of concern. Scripts Albuterol Sulfate (VENTOLIN HFA INHALER) 18 Gm Hfa.aer.ad 2 PUFF IH PRN Q4HRS PRN for FOR ASTHMA for 10 Days, #1 EACH 0 Refills Prov: DEBO KIRBY MD 09/27/21 Prednisone (PREDNISONE) 50 Mg Tablet 50 MG PO DAILY for cough for 5 Days, #5 TAB Prov: DEBO KIRBY MD 09/27/21 Doxycycline Hyclate (DOXYCYCLINE HYCLATE) 100 Mg Tablet 1 TAB PO BID for cough for 10 Days, #20 TAB Prov: DEBO KIRBY MD 09/27/21 Problem Qualifiers DEBO KIRBY MD Sep 27, 2021 16:41
[2021-09-27 16:58] VITALS: BP 110/89
--- NOTE | 2021-09-27 23:45 | EKG ---
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
== END 2021-09-27 17:00 | disposition left against medical advice (07) ==
LOC: ER 11:54
DX: J20.8 Acute bronchitis due to other specified organisms (principal); R77.8 Other specified abnormalities of plasma proteins; E11.9 Type 2 diabetes mellitus without complications; I10 Essential (primary) hypertension; E03.9 Hypothyroidism, unspecified; E78.5 Hyperlipidemia, unspecified; Z87.891 Personal history of nicotine dependence
CPT/HCPCS: 36415; 71046; 80053; 83880; 84484; 85025; 93005; 94640; 99285; J7512; J7613; 99284